=== PATIENT | female | born 1940 | race Caucasian/White ===

== ENCOUNTER → 2016-09-05 | Outpatient (CLI) | payer OTHER, MEDICARE ==
[~2016-09-05] MED LIST: ALPH100T PO; ALPH1TAB PO; AMOX1TAB43 PO; ANAS1TAB19 PO; ANR PO; ASPCH81X PO; BEE POLLEN PO; BEE580CA PO; BUPR-79 PO; BUPR150T47 PO; CALC-214 PO; CALC1TAB25 PO; CEFD300C2 PO; CHOL100010 PO; CHOL100027 PO; CIPR-255 PO; COEN50CA2 PO; COEN50CA9 PO; DIGE1CAP7 PO; DIGE1TAB PO; FRRS300 PO; FSMD/70 PO; GLUC1CAP35 PO; GLUCCAP PO; HYDR-5688 PO; LISI-461 PO; LORA-741 PO; LPR25 PO; MAGN1TAB16 PO; METO25TA56 PO; OMEG10007 PO; OMEG12006 PO; ONDA8TAB6 PO; POTA99TA PO; POTASSIUM PO; PROB1TAB16 PO; PROC1TAB5 PO; SELE1TAB PO; VITA10004 PO; [UNRECOGNIZED DRUG - OTHER] PO; [UNRECOGNIZED DRUG - OTHER] PO; [UNRECOGNIZED DRUG - OTHER] PO; [UNRECOGNIZED DRUG - OTHER] PO
--- NOTE | 2016-09-05 14:26 | DIAGNOSTIC IMAGING REPORT ---
PET/CT SKULL-THIGH CLINICAL HISTORY: Breast carcinoma COMPARISON STUDY: 05/30/2016 FINDINGS: The patient was injected with 13.3 mCi of F 18 labeled FDG. Following the standard induction phase, PET/CT scanning is performed from skull base to the upper thigh region. Within the neck, there is a persistent FDG avid left supraclavicular lymph node with SUV maximum of 4.2. Within the chest, there are persistent small FDG avid mediastinal and hilar lymph nodes. A escrow representative right hilar lymph node has an SUV maximum of 4.8. This previously had an SUV maximum of 4.5. Since the prior study, the patient has developed a small left pleural effusion. There is diffuse increased pleural uptake on the right, a finding consistent with prior pleurodesis. There are increasing small FDG avid left axillary lymph nodes. Since the prior study, the patient has developed small FDG avid hepatic masses demonstrating SUV maximum of 7 there are bilateral FDG avid small adrenal nodules. The largest lesion is located within the left lobe measuring 2 cm. There is persistent left-sided hydronephrosis.. There are small FDG avid lymph nodes in the region the tico hepatis. There is a small FDG avid Para-aortic lymph node. There is colonic diverticulosis. There is an FDG avid left adnexal lesion with SUV maximum of 10.5. This appears to fuse to the left ovary. There is persistent sigmoid wall thickening which remains FDG avid. There are multiple sclerotic skeletal lesions consistent with skeletal metastases. Several these are FDG avid. There is at the GE avid soft tissue nodule within the right lateral abdominal wall at the renal level. IMPRESSION: 1. PET/CT evidence of progressive metastatic disease. 2. Interval development of a small left pleural effusion 3. Persistent FDG avid adenopathy, soft tissue metastasis, and skeletal 4. Interval development of FDG avid hepatic masses viewed as highly suspicious for metastatic disease 5. Persistent sigmoid wall thickening which remains FDG avid 6. Increased intensity of an FDG avid lesion fusing to the left ovary with SUV maximum of 10.5 Electronically signed by: Ho Pimentel M.D. 09/05/2016 2:24 PM Dictated Date/Time: 09/05/2016 2:08 PM
== END | disposition home or self-care (01) ==
LOC: C.PET 11:02
PROVIDERS: ATTEND Internal Medicine Hematology
DX: C50.011 Malignant neoplasm of nipple and areola, right female breast (principal); C79.51 Secondary malignant neoplasm of bone

== ENCOUNTER 2016-10-28 20:38 | Inpatient (IN) | payer OTHER, MEDICARE ==
[~2016-10-28] VITALS: Ht 162.6 cm; Wt 55.6 kg
[~2016-10-28 20:38] MED LIST changes: -ALPH1TAB PO; -BEE580CA PO; -BUPR-79 PO; -CALC-214 PO; -CEFD300C2 PO; -CHOL100010 PO; -CIPR-255 PO; -COEN50CA9 PO; -DIGE1TAB PO; -GLUC1CAP35 PO; -METO25TA56 PO; -OMEG10007 PO; -ONDA8TAB6 PO; -POTA99TA PO; -PROB1TAB16 PO; -PROC1TAB5 PO; -[UNRECOGNIZED DRUG - OTHER] PO
[2016-10-28] MEDS ORDERED: LEVAQUIN 750MG / 150ML D5W IV STA (21:01)
[2016-10-28] MEDS ORDERED: VANCOMYCIN 1GM/270ML NSS IV STA (21:01)
[2016-10-28] MEDS ORDERED: SODIUM CHLORIDE 0.9% 1000ML 1,000 ML IV ONE (21:01)
[2016-10-28] MEDS ORDERED: PIPERACILLIN/TAZOBACTAM 4.5 GM/100ML D5W IV STA (21:01)
[2016-10-28] MEDS ORDERED: ONDANSETRON INJ 2 MG/ML 2 ML VIAL IV STA (21:02)
[2016-10-28] MEDS ORDERED: ACETAMINOPHEN 500 MG TAB PO STA (21:02)
--- NOTE | 2016-10-28 21:23 | EMERGENCY ROOM VISIT NOTE ---
History Report prepared by Catarina: Etelvina Booker Under the Supervision of: Dr. Devin Oden M.D. First contact with patient: 20:52 Chief Complaint: VOMITING Stated Complaint: VOMIT, NAUSEA History of Present Illness The patient is a 76 year old female who presents to the Emergency Room with complaints of intermittent vomiting starting a few days ago. The patient states that she has been experiencing nausea, a fever, and neck pain. She states she took Tylenol early this afternoon. The patient notes that she has breast cancer and is taking chemotherapy pills for it. She reports that she came to the ED because she thinks she is dehydrated. The patient denies abdominal pain. Source of History: patient Onset: few days ago Position: other (global) Quality: other (global) Timing: intermittent Associated Symptoms: + fevers, + nausea, + neck pain, No abdominal pain Review of Systems See HPI for pertinent positives & negatives. A total of 10 systems reviewed and were otherwise negative. Past Medical & Surgical Medical Problems: (1) Anemia due to multiple mechanisms (2) Anxiety (3) Breast cancer (4) HTN (hypertension) (5) Malignant pleural effusion (6) Secondary malignant neoplasm of bone (7) Stage IV carcinoma of breast, ER+ Surgical Problems: (1) H/O shoulder replacement (2) S/P breast lumpectomy Family History Aneurysm FH: cancer Hypertension Social History Smoking Status: Former Smoker Alcohol Use: occasionally Marital Status: in relationship Housing Status: lives with significant other Current/Historical Medications Scheduled Alendronate/Cholecalciferol (Fosamax+D 70MG/2800 Iu), 1 TABLET PO WK Alpha-Lipoic Acid (Thioctic Ac (Alpha-Lipoic Acid), 1 TAB PO HS Aspirin (Aspirin Chewable), 243 MG PO QAM Bupropion (Zyban), 150 MG PO BID Calcium W/ Magnesium (Calcium Magnesium 750), 1 TAB PO HS Cholecalciferol (Vitamin D 1000 Unit), 6,000 UNITS PO HS Ciprofloxacin Hcl (Cipro), 500 MG PO BID Coenzyme Q10 (Ubidecarenone) (Co Q-10), 50-100 MG PO HS Digestive Enzymes (Digestive Enzymes), 1 CAP PO HS Pmurpizunbl-Yqeerpadmge-Ylhtnx (Joint Support Formula), 2 CAP PO HS Metoprolol Tartrate (Lopressor), 25 MG PO BID [place]-3 Fatty Acids ([place] 3), 1,600 MG PO HS Selenium (Selenium), 100 MCG PO HS Vitamin E (Vitamin E), 1,000 UNITS PO HS [Anr], 4 TAB PO H [Potassium], 100 MG PO HS [bee pollen], 3 TBS PO HS [citramax], 1 TAB PO AC [new life], 3 CAP PO HS [probilis], 3,000 MG PO HS Scheduled PRN Hydrocodone/Acetaminophen 5MG/325MG ([place] 5MG/325MG), 1 TABLET PO Q8H PRN for N Lorazepam (Ativan), 0.5 MG PO BID PRN for RN Allergies Coded Allergies: Sulfa Antibiotics (Verified Allergy, Unknown, NAUSEA AND VOMITNG, 10/28/16) Physical Exam Vital Signs Date Time Temp Pulse Resp B/P Pulse Ox O2 Delivery O2 Flow Rate FiO2 10/29/16 01:43 94 18 114/59 96 Room Air 10/29/16 00:16 108 18 97/64 95 Room Air 10/28/16 22:41 36.9 128 18 104/62 94 10/28/16 21:31 134 22 135/83 93 Room Air 10/28/16 21:17 134 10/28/16 21:15 93 Room Air 10/28/16 20:51 38.3 151 24 113/71 93 Room Air Physical Exam GENERAL: Patient is well-nourished and cachetic in appearance. HEAD: Normocephalic atraumatic EYES: Ocular movements intact pupils equal and react to light OROPHARYNX mucous membranes are moist no exudates present no erythema or edema present NECK: Supple no nuchal rigidity CHEST: Good equal expansion LUNGS: Clear and equal to auscultation CARDIAC: Normal S1 and S2 ABDOMEN: Soft nontender no guarding BACK: No CVA tenderness EXTREMITIES: No pain upon palpation normal muscle strength in all groups no clubbing cyanosis or edema NEURO: Patient is following commands is answering questions appropriately. Alert and oriented x3 Cranial Nerves 2-12 grossly intact Medical Decision & Procedures ER Provider Diagnostic Interpretation: Radiology results as stated below per my review and radiologist interpretation: CHEST ONE VIEW PORTABLE HISTORY: Sepsis COMPARISON: Chest 06/22/2016. PET CT 09/05/2016. FINDINGS: Small right pleural effusion and right basilar airspace opacities, unchanged. The heart remains mildly enlarged. No pneumothorax. No new focal lung consolidations. No evidence for pulmonary edema. IMPRESSION: No change in the small right pleural effusion and right basilar airspace opacities. Electronically signed by: Santiago Mejia M.D. 10/28/2016 9:49 PM Dictated Date/Time: 10/28/2016 9:47 PM Laboratory Results 10/28/16 20:55 Red Blood Count 3.46, Mean Corpuscular Volume 85.3, Mean Corpuscular Hemoglobin 29.2, Mean Corpuscular Hemoglobin Concent 34.2, Mean Platelet Volume 9.7, Neutrophils (%) (Auto) 91.3, Lymphocytes (%) (Auto) 3.2, Monocytes (%) (Auto) 5.0, Eosinophils (%) (Auto) 0.0, Basophils (%) (Auto) 0.1, Neutrophils # (Auto) 14.40, Lymphocytes # (Auto) 0.51, Monocytes # (Auto) 0.79, Eosinophils # (Auto) 0.00, Basophils # (Auto) 0.02 10/28/16 20:55 Test 10/28/16 20:55 10/28/16 21:22 10/28/16 21:57 White Blood Count 15.78 K/uL (4.8-10.8) Red Blood Count 3.46 M/uL (4.2-5.4) Hemoglobin 10.1 g/dL (12.0-16.0) Hematocrit 29.5 % (37-47) Mean Corpuscular Volume 85.3 fL (80-100) Mean Corpuscular Hemoglobin 29.2 pg (25-34) Mean Corpuscular Hemoglobin Concent 34.2 g/dl (32-36) Platelet Count 269 K/uL (130-400) Mean Platelet Volume 9.7 fL (7.4-10.4) Neutrophils (%) (Auto) 91.3 % Lymphocytes (%) (Auto) 3.2 % Monocytes (%) (Auto) 5.0 % Eosinophils (%) (Auto) 0.0 % Basophils (%) (Auto) 0.1 % Neutrophils # (Auto) 14.40 K/uL (1.4-6.5) Lymphocytes # (Auto) 0.51 K/uL (1.2-3.4) Monocytes # (Auto) 0.79 K/uL (0.11-0.59) Eosinophils # (Auto) 0.00 K/uL (0-0.5) Basophils # (Auto) 0.02 K/uL (0-0.2) RDW Standard Deviation 47.8 fL (36.4-46.3) RDW Coefficient of Variation 16.3 % (11.5-14.5) Immature Granulocyte % (Auto) 0.4 % Immature Granulocyte # (Auto) 0.06 K/uL (0.00-0.02) Platelet Estimate NORMAL Prothrombin Time 14.7 SECONDS (9.0-12.0) Prothromb Time International Ratio 1.4 (0.9-1.1) Activated Partial Thromboplast Time 34.9 SECONDS (21.0-31.0) Partial Thromboplastin Ratio 1.3 Anion Gap 13.0 mmol/L (3-11) Est Creatinine Clear Calc Drug Dose 19.1 ml/min Estimated GFR () 24.6 Estimated GFR (Non- 21.2 BUN/Creatinine Ratio 24.6 (10-20) Calcium Level 8.4 mg/dl (8.5-10.1) Magnesium Level 2.2 mg/dl (1.8-2.4) Total Bilirubin 0.4 mg/dl (0.2-1) Aspartate Amino Transf (AST/SGOT) 27 U/L (15-37) Alanine Aminotransferase (ALT/SGPT) 17 U/L (12-78) Alkaline Phosphatase 93 U/L (45-117) Total Protein 7.6 gm/dl (6.4-8.2) Albumin 3.0 gm/dl (3.4-5.0) Globulin 4.6 gm/dl (2.5-4.0) Albumin/Globulin Ratio 0.7 (0.9-2) Influenza Type A (RT-PCR) Neg for Influ A (NEG) Influenza Type A Antigen Neg for Influ A (NEG) Influenza Type B Antigen Neg for Influ B (NEG) Influenza Type B (RT-PCR) Neg for Influ B (NEG) Bedside Lactic Acid Venous 2.27 mmol/L (0.90-1.70) Labs reviewed by ED physician. Medications Administered Medications (Trade) Dose Ordered Sig/Zeferino Route Start Time Stop Time Status Last Admin Dose Admin Sodium Chloride (Nss 1000ml) 1,000 ml @ 999 mls/hr Q1H1M ONCE IV 5/28/17 21:01 10/28/16 22:01 DC 10/28/16 21:15 999 MLS/HR Piperacillin Sod/ Tazobactam Sod (Zosyn Iv) 4.5 gm ONE STAT IV 10/28/16 21:01 10/28/16 21:03 DC 10/28/16 22:03 4.5 GM Vancomycin HCl (Vancomycin 1gm/ 270ml Nss) 1 gm ONE STAT IV 10/28/16 21:01 10/28/16 21:04 DC 10/29/16 00:37 1 GM Levofloxacin (Levaquin / D5W) 750 mg ONE STAT IV 10/28/16 21:01 10/28/16 21:04 DC 10/28/16 22:48 750 MG Acetaminophen (Tylenol Tab) 1,000 mg NOW STAT PO 10/28/16 21:02 10/28/16 21:04 DC 10/28/16 21:20 1,000 MG Ondansetron HCl 4 mg 4 mg NOW STAT IV 10/28/16 21:02 10/28/16 21:04 DC 10/28/16 21:13 4 MG Sodium Chloride 159 ml @ 999 mls/hr Q10M STAT IV 10/28/16 21:31 10/28/16 21:40 DC 10/28/16 22:44 999 MLS/HR Sodium Chloride (Nss 500ml) 500 ml @ 999 mls/hr Q31M STAT IV 10/28/16 21:31 10/28/16 22:01 DC 10/28/16 22:02 999 MLS/HR ECG Indication: vomiting Rate (beats per minute): 144 Rhythm: sinus tachycardia Findings: RBBB (incomplete), other (Short CT, premature supraventricular complexes, old septal infarct) ED Course 2051: Past medical records reviewed. The patient was evaluated in room B7. A complete history and physical examination was performed. 2100: Ordered Levofloxacin 750 mg IV, Vancomycin HCl 1 gm IV, Zosyn Iv 4.5 gm IV , NSS 1000 ml @ 999 mls/hr. 2101: Ordered Zofran Inj 4 mg IV, Tylenol Tab 1000 mg PO. 2130: Ordered NSS 500 ml @ 999 mls/hr IV, NSS 159 ml @ 999 mls/hr IV. 2149: I reevaluated the patient and she is resting comfortably. I discussed her test results and the future treatment plan with her. She verbalized agreement and understanding. 2153: I discussed the patient's case with Dr. Elliott, he has agreed to evaluate the patient for further management and care. Medical Decision Medication Reconciliation: I attest that I have personally reviewed the patient' s current medication list Differential diagnosis: Etiologies such as sepsis, UTI, pneumonia, metabolic, electrolyte abnormalities , cardiac sources, intracerebral event, toxicologic, neurologic, as well as others were entertained. This is a 76-year-old female who presents emergency department hypotensive. For this reason a sepsis alert was initiated. Lactic acid was obtained the patient was given normal saline bolus 30 mL's per kilogram. Blood cultures were obtained. The patient was started on broad-spectrum antibiotics. She does have an elevation in her white blood count in her creatinine and troponin are also elevated. I did discuss the case with the hospitalist service who agreed to admit the patient. Patient and family were in agreement with the treatment plan. Consults Time Called: 2149 Consulting Physician: Dr. Elliott Returned Call: 2153 I discussed the patient's case with Dr. Elliott, he has agreed to evaluate the patient for further management and care. Impression Primary Impression: Sepsis Critical Care I have personally spent greater than 30 minutes of critical care time in the direct management of this patient. This includes bedside care, interpretation of diagnostic studies, and testing, discussion with consultants, patient, and family members, and other required patient management activities. This 30 minutes is in excess of all separately billable procedures. Scribe Attestation The scribe's documentation has been prepared under my direction and personally reviewed by me in its entirety. I confirm that the note above accurately reflects all work, treatment, procedures, and medical decision making performed by me. Departure Information Dispostion Being Evaluated By Hospitalist Prescriptions Ciprofloxacin Hcl (CIPRO) 500 Mg Tab 500 MG PO BID for 7 Days, #14 TAB Prov: Nell Borrero, 10/29/16 Referrals Nathalie Davis M.D. (PCP) Patient Instructions My [facility] Problem Qualifiers Primary Impression: Sepsis Sepsis type: sepsis due to unspecified organism Qualified Codes: A41.9 - Sepsis, unspecified organism
[2016-10-28 21:26] LABS: INR 1.4 (0.9-1.1); PARTIAL THROMBOPLASTIN RATIO 1.3; PROTHROMBIN TIME (PATIENT) 14.7 SECONDS (9.0-12.0)
[2016-10-28 21:31] LABS: BUN/CREATININE RATIO 24.6 (10-20); CREATININE 2.2 mg/dl (0.60-1.20); POTASSIUM 3.2 mmol/L (3.5-5.1)
[2016-10-28] MEDS ORDERED: SODIUM CHLORIDE 0.9% IV STA (21:31)
[2016-10-28] MEDS ORDERED: SODIUM CHLORIDE 0.9% 500ML 500 ML IV STA (21:31)
[2016-10-28 21:35] LABS: HEMATOCRIT 29.5 % (37-47); MEAN CELL VOLUME 85.3 fL (80-100); MEAN CORPUSCULAR HEMOGLOBIN 29.2 pg (25-34); MEAN CORPUSCULAR HGB CONC 34.2 g/dl (32-36); MEAN PLATELET VOLUME 9.7 fL (7.4-10.4); PLATELET COUNT 269 K/uL (130-400); RED BLOOD COUNT 3.46 M/uL (4.2-5.4); WHITE BLOOD COUNT 15.78 K/uL (4.8-10.8)
[2016-10-28 21:36] LABS: BASO % 0.1 %; BASO ABS # 0.02 K/uL (0-0.2); COMPLETE YES; IG% 0.4 %; LYMPH % 3.2 %; LYMPH ABS # 0.51 K/uL (1.2-3.4); NEUT % 91.3 %; PLT ESTIMATE NORMAL
[2016-10-28 21:38] LABS: ALB/GLOB RATIO 0.7 (0.9-2); CKMB/CK RATIO 0.6 (0-3.0)
--- NOTE | 2016-10-28 21:50 | DIAGNOSTIC IMAGING REPORT ---
CHEST ONE VIEW PORTABLE HISTORY: Sepsis COMPARISON: Chest 06/22/2016. PET CT 09/05/2016. FINDINGS: Small right pleural effusion and right basilar airspace opacities, unchanged. The heart remains mildly enlarged. No pneumothorax. No new focal lung consolidations. No evidence for pulmonary edema. IMPRESSION: No change in the small right pleural effusion and right basilar airspace opacities. Electronically signed by: Santiago Mejia M.D. 10/28/2016 9:49 PM Dictated Date/Time: 10/28/2016 9:47 PM
[2016-10-28 21:58] LABS: CALCIUM 8.4 mg/dl (8.5-10.1)
[2016-10-28 23:32] LABS: INFLUENZA A PCR Neg for Influ A (NEG); INFLUENZA B PCR Neg for Influ B (NEG)
[2016-10-29] MEDS ORDERED: VANCOMYCIN 1GM/270ML NSS ONE (00:36)
[2016-10-29 02:37] VITALS: O2SAT 96
[2016-10-29] MEDS ORDERED: HYDROCODONE/ACETAMOPHEN 5/325MG TAB PO PRN (02:45)
[2016-10-29] MEDS ORDERED: ACETAMINOPHEN 325 MG TAB PO PRN (02:45)
[2016-10-29] MEDS ORDERED: ONDANSETRON INJ 2 MG/ML 2 ML VIAL IV PRN (02:45)
[2016-10-29] MEDS ORDERED: LORAZEPAM 0.5 MG TAB PO PRN (02:45)
[2016-10-29 03:01] LABS: URINE APPEARANCE TURBID (CLEAR); URINE BILIRUBIN NEG (NEG); URINE COLOR YELLOW; URINE EPITHELIAL CELL AUTO 20-30 /lpf (0-5); URINE NITRITE POS (NEG); URINE SPECIFIC GRAVITY 1.022 (1.000-1.030); UROBILINOGEN NEG (NEG); ZZUR CULT IF INDIC CLEAN CATCH YES
--- NOTE | 2016-10-29 03:03 | History and Physical ---
History & Physical Date & Time of Service: October 29, 2016 at 02:48 Chief Complaint: Vomit, Nausea Primary Care Physician: Nathalie Davis M.D. History of Present Illness Source: patient, hospital records 75 year old female with history of Metastatic Breast Cancer, currently on Xeloda , Hypertension, Atrial fibrillation presenting with fever and nausea/vomiting. Follows with Dr. Nathalie Davis for PCP and Dr. Oliver Davis for Oncology. History obtained from patient who was very irritable and sharp during my encounter. She would only give brief answers to my questions. "I don't have sepsis! I do not believe you." Patient reassured and I discussed her condition and plan of care extensively with her. Apparently, she was doing fine until about 3-4 days ago when after eating [place] food, she had multiple episodes of vomiting and since then has been feeling weak and with poor oral intake. Also had chills intermittently. Denies abdominal pain, cough, shortness of breath, headache, changes with urination or BM. She presented to the ER due to persistence of symptoms. Patient arrive febrile and tachycardic. WBC elevated CXR showed right pleural effusion, likely similar to previous studies Crea elevated at 2.2 She was given Vanco, Zosyn, Levaquin and IV fluids. On exam, patient sleeping but easily rousable. States she feels somewhat better but still feels cold. Denies any active symptoms on exam, Past Medical/Surgical History Medical Problems: (1) Anxiety Status: Chronic (2) Breast cancer Status: Chronic (3) HTN (hypertension) Status: Chronic (4) Malignant pleural effusion Status: Chronic Surgical Problems: (1) H/O shoulder replacement Status: Chronic (2) S/P breast lumpectomy Status: Chronic Family History Aneurysm FH: cancer Hypertension Social History Smoking Status: Former Smoker Alcohol Use: occasionally Drug Use: none Marital Status: single, in relationship Immunizations History of Influenza Vaccine: Yes Influenza Vaccine Date: Mar 06, 2016 History of Pneumococcal: Yes Pneumococcal Date: Mar 06, 2016 Allergies Coded Allergies: Sulfa Antibiotics (Verified Allergy, Unknown, NAUSEA AND VOMITNG, 10/28/16) Home Medications Scheduled Alendronate/Cholecalciferol (Fosamax+D 70MG/2800 Iu), 1 TABLET PO WK Alpha-Lipoic Acid (Thioctic Ac (Alpha-Lipoic Acid), 1 TAB PO HS Aspirin (Aspirin Chewable), 243 MG PO QAM Bupropion (Zyban), 150 MG PO BID Calcium W/ Magnesium (Calcium Magnesium 750), 1 TAB PO HS Cholecalciferol (Vitamin D 1000 Unit), 6,000 UNITS PO HS Coenzyme Q10 (Ubidecarenone) (Co Q-10), 50-100 MG PO HS Digestive Enzymes (Digestive Enzymes), 1 CAP PO HS Lptegyhuneq-Pnmstzplxhz-Zgxjxr (Joint Support Formula), 2 CAP PO HS Metoprolol Tartrate (Lopressor), 25 MG PO BID [place]-3 Fatty Acids ([place] 3), 1,600 MG PO HS Selenium (Selenium), 100 MCG PO HS Vitamin E (Vitamin E), 1,000 UNITS PO HS [Anr], 4 TAB PO H [Potassium], 100 MG PO HS [bee pollen], 3 TBS PO HS [citramax], 1 TAB PO AC [new life], 3 CAP PO HS [probilis], 3,000 MG PO HS Scheduled PRN Hydrocodone/Acetaminophen 5MG/325MG ([place] 5MG/325MG), 1 TABLET PO Q8H PRN for N Lorazepam (Ativan), 0.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 Constitutional- (+) as noted above Eyes- no acute visual changes ENT- no sinus drainage; no pharyngitis Pulmonary- no cough, no wheezing, no shortness of breath Cardiac- no chest pain, no palpitations, no orthopnea, no dependent edema GI- no diarrhea, no melena, no hematochezia - no dysuria, no hematuria Musculoskeletal- no arthralgias, no myalgias Derm- no rashes, no new skin lesions, no changing skin lesions Hematologic- no unusual bruising, no unusual bleeding Lymphatics- no adenopathy Endocrine- no polyuria or polydipsia; no heat or cold intolerance Neuro- no headaches, no focal neurologic symptoms Psych- no anxiety, no depression Physical Exam Vital Signs Date Time Temp Pulse Resp B/P Pulse Ox O2 Delivery O2 Flow Rate FiO2 10/29/16 01:43 94 18 114/59 96 Room Air 10/29/16 00:16 108 18 97/64 95 Room Air 10/28/16 22:41 36.9 128 18 104/62 94 10/28/16 21:31 134 22 135/83 93 Room Air 10/28/16 21:17 134 10/28/16 21:15 93 Room Air 10/28/16 20:51 38.3 151 24 113/71 93 Room Air FULL PHYSICAL EXAM NOT PERFORMED PATIENT DECLINED, RN AT BESIDE DURING PHYSICAL EXAM General Appearance: no apparent distress, + thin Head: normocephalic, atraumatic Eyes: normal inspection, EOMI, sclerae normal ENT: hearing grossly normal, + pertinent finding (FULL PHYSICAL EXAM NOT PERFORMED PATIENT DECLINED) Neck: supple, no JVD, + pertinent finding (FULL PHYSICAL EXAM NOT PERFORMED PATIENT DECLINED) Respiratory/Chest: lungs clear, normal breath sounds, no respiratory distress, no accessory muscle use Cardiovascular: regular rate, rhythm, no JVD, no murmur Abdomen/GI: + pertinent finding (FULL PHYSICAL EXAM NOT PERFORMED PATIENT DECLINED) Back: normal inspection Extremities/Musculoskelatal: + pertinent finding (FULL PHYSICAL EXAM NOT PERFORMED PATIENT DECLINED) Neurologic/Psych: no motor/sensory deficits, alert, oriented x 3, + pertinent finding (AFFECT: PATIENT VERY IRRITABLE AND UNCOOPERATIVE, BUT OCCASIONALLY WOULD GIVE COMPLIMENTS TO EXAMINER) Skin: normal color, warm/dry, no rash Diagnostics Laboratory Results Results Past 24 Hours Test 10/28/16 20:55 10/28/16 21:22 10/28/16 21:57 10/29/16 02:28 Range/Units White Blood Count 15.78 4.8-10.8 K/uL Red Blood Count 3.46 4.2-5.4 M/uL Hemoglobin 10.1 12.0-16.0 g/dL Hematocrit 29.5 37-47 % Mean Corpuscular Volume 85.3 80-100 fL Mean Corpuscular Hemoglobin 29.2 25-34 pg Mean Corpuscular Hemoglobin Concent 34.2 32-36 g/dl Platelet Count 269 130-400 K/uL Mean Platelet Volume 9.7 7.4-10.4 fL Neutrophils (%) (Auto) 91.3 % Lymphocytes (%) (Auto) 3.2 % Monocytes (%) (Auto) 5.0 % Eosinophils (%) (Auto) 0.0 % Basophils (%) (Auto) 0.1 % Neutrophils # (Auto) 14.40 1.4-6.5 K/uL Lymphocytes # (Auto) 0.51 1.2-3.4 K/uL Monocytes # (Auto) 0.79 0.11-0.59 K/uL Eosinophils # (Auto) 0.00 0-0.5 K/uL Basophils # (Auto) 0.02 0-0.2 K/uL RDW Standard Deviation 47.8 36.4-46.3 fL RDW Coefficient of Variation 16.3 11.5-14.5 % Immature Granulocyte % (Auto) 0.4 % Immature Granulocyte # (Auto) 0.06 0.00-0.02 K/uL Platelet Estimate NORMAL Prothrombin Time 14.7 9.0-12.0 SECONDS Prothromb Time International Ratio 1.4 0.9-1.1 Activated Partial Thromboplast Time 34.9 21.0-31.0 SECONDS Partial Thromboplastin Ratio 1.3 Sodium Level 140 136-145 mmol/L Potassium Level 3.2 3.5-5.1 mmol/L Chloride Level 106 98-107 mmol/L Carbon Dioxide Level 21 21-32 mmol/L Anion Gap 13.0 3-11 mmol/L Blood Urea Nitrogen 54 7-18 mg/dl Creatinine 2.20 0.60-1.20 mg/dl Est Creatinine Clear Calc Drug Dose 19.1 ml/min Estimated GFR () 24.6 Estimated GFR (Non- 21.2 BUN/Creatinine Ratio 24.6 10-20 Random Glucose 168 70-99 mg/dl Calcium Level 8.4 8.5-10.1 mg/dl Total Bilirubin 0.4 0.2-1 mg/dl Aspartate Amino Transf (AST/SGOT) 27 15-37 U/L Alanine Aminotransferase (ALT/SGPT) 17 12-78 U/L Alkaline Phosphatase 93 45-117 U/L Total Creatine Kinase 275 26-192 U/L Creatine Kinase MB 1.6 0.5-3.6 ng/ml Creatine Kinase MB Ratio 0.6 0-3.0 Troponin I 0.353 0-0.045 ng/ml Total Protein 7.6 6.4-8.2 gm/dl Albumin 3.0 3.4-5.0 gm/dl Globulin 4.6 2.5-4.0 gm/dl Albumin/Globulin Ratio 0.7 0.9-2 Influenza Type A (RT-PCR) Neg for Influ A NEG Influenza Type A Antigen Neg for Influ A NEG Influenza Type B Antigen Neg for Influ B NEG Influenza Type B (RT-PCR) Neg for Influ B NEG Bedside Lactic Acid Venous 2.27 0.90-1.70 mmol/L Test 10/29/16 02:34 10/29/16 02:43 Range/Units Microbiology Results 10/28/16 Blood Culture, Received Pending 10/28/16 Blood Culture, Received Pending 10/29/16 Urine Culture, Received Pending Diagnostic Radiology CHEST ONE VIEW PORTABLE HISTORY: Sepsis COMPARISON: Chest 06/22/2016. PET CT 09/05/2016. FINDINGS: Small right pleural effusion and right basilar airspace opacities, unchanged. The heart remains mildly enlarged. No pneumothorax. No new focal lung consolidations. No evidence for pulmonary edema. IMPRESSION: No change in the small right pleural effusion and right basilar airspace opacities. EKG hr 149, sinus tach, PVCs Impression Assessment and Plan 75 year old female with history of Metastatic Breast Cancer, currently on Xeloda , Hypertension, Atrial fibrillation presenting with fever and nausea/vomiting. SIRS CRITERIA POSSIBLE SEPSIS - no clear focus of infection on exam - on chemo, immunosuppressed - ff up cultures - empiric Vanco, Zosy, Levaquin IV fluids -repeat lactic acid ACUTE RENAL FAILURE baseline crea 0.8 likely pre renal from vomiting, poor intake IV fluids monitor crea HYPOKALEMIA from vomiting, poor intake PO K monitor check Mg ELEVATED LACTIC ACID monitor BREAST CANCER WITH BRAIN, LIVER, BONE METS on Xeloda every other week Xgeva follows with Dr. Davis HYPERTENSION HISTORY OF ATRIAL FIBRILLATION hold Metoprolol to prevent hypotension while having sepsis resume accordingly on Aspirin DVT prophylaxis patient declines leg exam, defer SCDs until swelling ruled out hold off on heparin/lovenox, confirm Brain mets on Pet scan CODE status patient prefers CPR and Shock regarding mech vent, patient declined discussion and says her sister will bring her living will Full code for now until living will verified Disposition pending VTE Prophylaxis VTE Risk Assessment Done? Y/N: Yes Risk Level: Moderate
[2016-10-29 03:05] LABS: MANUAL MICROSCOPIC REQUIRED? NO; REVIEW REQ? YES
[2016-10-29 03:14] LABS: MAGNESIUM 2.2 mg/dl (1.8-2.4)
[2016-10-29 04:03] LABS: CKMB/CK RATIO 0.6 (0-3.0)
[2016-10-29 04:34] VITALS: BMI 20.9
[2016-10-29 04:36] VITALS: BP 116/71; PULSE 92; TEMP 36.3; Ht 162.6 cm; Wt 55.6 kg
[2016-10-29] MEDS ORDERED: NSS + 20MEQ KCL 1000ML 1,000 ML IV SCH (05:00)
[2016-10-29] MEDS ORDERED: POTASSIUM CHLORIDE 20 MEQ TABCR PO ONE (05:00)
[2016-10-29] MEDS ORDERED: VANCOMYCIN CONSULT ACTIVE PRN (05:10)
[2016-10-29] MEDS ORDERED: LEVOFLOXACIN CONSULT ACTIVE PRN (05:15)
[2016-10-29] MEDS ORDERED: PIPERACILL/TAZOBAC CONSULT ACTIVE PRN (05:15)
[2016-10-29] MEDS ORDERED: PIPERACILL/TAZOBAC IV 3.375 GM in DEXTROSE 5% 100ML IV SCH (06:00)
[2016-10-29 07:17] VITALS: BP 111/71; PULSE 89; TEMP 36.5; O2SAT 94
[2016-10-29] MEDS ORDERED: ASPIRIN 81 MG CHEW PO SCH (09:00)
[2016-10-29] MEDS ORDERED: BuPROPion SR 150 MG TABCR PO SCH (09:00)
--- NOTE | 2016-10-29 11:24 | Progress Note ---
Progress Note Date of Service October 29, 2016. Progress Note I saw the patient in room 278-2: she states she is refusing to stay in the hospital; she wants to sign out against medical advice. I let her know that she has sepsis and a positive blood culture and she said she still would like to sign out against medical advice. She states she has cancer all over and there is no reason for her to stay here to be treated. She is okay with seeing her primary care physician as an outpatient. Sepsis possibly secondary to UTI UA = dirty blood culture x1 positive for gram negative bacilli second blood culture pending urine culture pending She is signing out against medical advice will d/c with Cipro x7 days outpatient PCP and oncology follow-up will need outpatient CBC and BMP to follow-up on WBC, kidney function and potassium level She is refusing all other treatment
[2016-10-29] MEDS ORDERED: CIPR-255 PO (11:25)
[2016-10-29 11:26] VITALS: BP 125/78; PULSE 91; TEMP 36.7; O2SAT 96
--- NOTE | 2016-10-29 11:36 | Discharge Instructions ---
Discharge Instructions Date of Service October 29, 2016. Admission Reason for Admission: Sepsis Discharge Discharge Diagnosis / Problem: Sepsis, possibly secondary to UTI Discharge Goals Goal(s): Decrease discomfort, Improve function Activity Recommendations Activity Limitations: resume your previous activity . Instructions / Follow-Up Instructions / Follow-Up You are signing out against medical advice - consequences include worsening infection, sepsis, septic shock, end organ failure and possibly Please drink plenty of fluids, you are dehydrated You will be prescribed Cipro for 7 days for a UTI Please follow-up with your PCP - you will get a phone call with a date/time - PCP should recheck CBC and BMP (labwork) and should follow-up on blood cultures/ urine culture Current Hospital Diet Patient's current hospital diet: AHA Diet (Heart Healthy), Clear Liquid Diet Discharge Diet Recommended Diet: Regular Diet Pending Studies Studies pending at discharge: no Medical Emergencies . Who to Call and When: Medical Emergencies: If at any time you feel your situation is an emergency, please call 911 immediately. . Non-Emergent Contact Non-Emergency issues call your: Primary Care Provider . . "Provider Documentation" section prepared by Nell Borrero. . VTE Core Measure Inpt VTE Proph given/why not?: SCD's
[2016-10-29 11:43] VITALS: BP 125/78; PULSE 91; TEMP 36.7; O2SAT 96
[2016-10-29] MEDS ORDERED: VANCOMYCIN INJ 800 MG in SODIUM CHLORIDE 0.9% 250ML 250 ML IV ONE (14:00)
[2016-10-29] MEDS ORDERED: OMEGA-3 (PURIFIED FISH OIL) 1 GM CAP PO SCH (21:00)
[2016-10-29] MEDS ORDERED: CALCIUM CITRATE 950 MG TAB PO SCH (21:00)
[2016-10-29] MEDS ORDERED: SELENIUM 100 MCG PO SCH (21:00)
[2016-10-29] MEDS ORDERED: [UNRECOGNIZED DRUG - OTHER] PO SCH (21:00)
[2016-10-29] MEDS ORDERED: TOCOPHERYL, DL-ALPHA 100 INTERUNIT CAP PO SCH (21:00)
[2016-10-30] MEDS ORDERED: PROC1TAB5 PO (12:31)
[2016-10-30] MEDS ORDERED: ONDA8TAB6 PO (12:31)
[2016-10-30] MEDS ORDERED: BUPR-79 PO (12:31)
[2016-10-30] MEDS ORDERED: CIPR-255 PO (12:31)
[2016-10-30] MEDS ORDERED: LORA-741 PO (12:31)
[2016-10-30] MEDS ORDERED: METO25TA56 PO (12:31)
[2016-10-30] MEDS ORDERED: POTA99TA PO (12:39)
[2016-10-30] MEDS ORDERED: PROB1TAB16 PO (12:39)
[2016-10-30] MEDS ORDERED: SELE1TAB PO (12:39)
[2016-10-30] MEDS ORDERED: DIGE1TAB PO (12:39)
[2016-10-30] MEDS ORDERED: CALC-214 PO (12:39)
[2016-10-30] MEDS ORDERED: [UNRECOGNIZED DRUG - OTHER] PO (12:39)
[2016-10-30] MEDS ORDERED: COEN50CA9 PO (12:39)
[2016-10-30] MEDS ORDERED: GLUC1CAP35 PO (12:39)
[2016-10-30] MEDS ORDERED: ALPH1TAB PO (12:39)
[2016-10-30] MEDS ORDERED: OMEG10007 PO (12:39)
[2016-10-30] MEDS ORDERED: CHOL100010 PO (12:39)
[2016-10-30] MEDS ORDERED: BEE580CA PO (12:39)
[2016-10-30] MEDS ORDERED: LEVOFLOXACIN 750MG / D5W IV SCH (22:00)
[2016-11-01] MEDS ORDERED: CEFD300C2 PO (11:23)
--- NOTE | 2016-11-12 21:19 | Discharge Summary ---
Discharge Summary Date of Service October 29 Discharge Summary Admission Date: October 29, 2016 at 02:27 Discharge Date: October 29, 2016 Principal Diagnosis: GRAM-NEGATIVE BACTEREMIA - SIGNED OUT AMA Admission Information HPI (per Admitting provider): 75 year old female with history of Metastatic Breast Cancer, currently on Xeloda , Hypertension, Atrial fibrillation presenting with fever and nausea/vomiting. Follows with Dr. Nathalie Davis for PCP and Dr. Oliver Davis for Oncology. History obtained from patient who was very irritable and sharp during my encounter. She would only give brief answers to my questions. "I don't have sepsis! I do not believe you." Patient reassured and I discussed her condition and plan of care extensively with her. Apparently, she was doing fine until about 3-4 days ago when after eating [place] food, she had multiple episodes of vomiting and since then has been feeling weak and with poor oral intake. Also had chills intermittently. Denies abdominal pain, cough, shortness of breath, headache, changes with urination or BM. She presented to the ER due to persistence of symptoms. Patient arrive febrile and tachycardic. WBC elevated CXR showed right pleural effusion, likely similar to previous studies Crea elevated at 2.2 She was given Vanco, Zosyn, Levaquin and IV fluids. On exam, patient sleeping but easily rousable. States she feels somewhat better but still feels cold. Denies any active symptoms on exam, Physical Exam (per Admitting): General Appearance: no apparent distress, + thin Head: normocephalic, atraumatic Eyes: normal inspection, EOMI, sclerae normal ENT: hearing grossly normal, + pertinent finding (FULL PHYSICAL EXAM NOT PERFORMED PATIENT DECLINED) Neck: supple, no JVD, + pertinent finding (FULL PHYSICAL EXAM NOT PERFORMED PATIENT DECLINED) Respiratory/Chest: lungs clear, normal breath sounds, no respiratory distress, no accessory muscle use Cardiovascular: regular rate, rhythm, no JVD, no murmur Abdomen/GI: + pertinent finding (FULL PHYSICAL EXAM NOT PERFORMED PATIENT DECLINED) Back: normal inspection Extremities/Musculoskelatal: + pertinent finding (FULL PHYSICAL EXAM NOT PERFORMED PATIENT DECLINED) Neurologic/Psych: no motor/sensory deficits, alert, oriented x 3, + pertinent finding (AFFECT: PATIENT VERY IRRITABLE AND UNCOOPERATIVE, BUT OCCASIONALLY WOULD GIVE COMPLIMENTS TO EXAMINER) Skin: normal color, warm/dry, no rash Hospital Course SIGNED OUT AMA SIGNED OUT AMA Discharge Instructions You are signing out against medical advice - consequences include worsening infection, sepsis, septic shock, end organ failure and possibly Please drink plenty of fluids, you are dehydrated You will be prescribed Cipro for 7 days for a UTI Please follow-up with your PCP - you will get a phone call with a date/time - PCP should recheck CBC and BMP (labwork) and should follow-up on blood cultures/ urine culture
== END 2016-10-29 12:30 | disposition left against medical advice (07) | DRG 872 ==
LOC: ENRESERVDT → ENRESERVTM → EDBD 20:38 → C.EDB 20:39 → C.MED 10-29 02:27
PROVIDERS: ADMIT Internal Medicine; ATTEND Family Medicine
DX: A41.9 Sepsis, unspecified organism (principal); N39.0 Urinary tract infection, site not specified; N17.9 Acute kidney failure, unspecified; C79.31 Secondary malignant neoplasm of brain; C78.7 Secondary malignant neoplasm of liver and intrahepatic bile duct; C79.51 Secondary malignant neoplasm of bone; J91.0 Malignant pleural effusion; B96.89 Other specified bacterial agents as the cause of diseases classified elsewhere; E87.6 Hypokalemia; R74.0 Nonspecific elevation of levels of transaminase and lactic acid dehydrogenase [LDH]; C50.919 Malignant neoplasm of unspecified site of unspecified female breast; R11.10 Vomiting, unspecified; R63.8 Other symptoms and signs concerning food and fluid intake; F41.9 Anxiety disorder, unspecified; Z53.21 Procedure and treatment not carried out due to patient leaving prior to being seen by health care provider; Z96.619 Presence of unspecified artificial shoulder joint; Z79.83 Long term (current) use of bisphosphonates; Z86.79 Personal history of other diseases of the circulatory system; Z79.82 Long term (current) use of aspirin; Z87.891 Personal history of nicotine dependence; Z79.891 Long term (current) use of opiate analgesic; Z79.899 Other long term (current) drug therapy; Z86.2 Personal history of diseases of the blood and blood-forming organs and certain disorders involving the immune mechanism

== ENCOUNTER 2016-10-30 11:30 | Inpatient (IN) | payer OTHER, MEDICARE ==
[~2016-10-30] VITALS: Ht 162.6 cm; Wt 58.6 kg
[~2016-10-30 11:30] MED LIST changes: -AMOX1TAB43 PO; -ANAS1TAB19 PO; +CIPR-255 PO; -FRRS300 PO; -LISI-461 PO; -MAGN1TAB16 PO
[2016-10-30] MEDS ORDERED: BUPR-79 PO (12:31)
[2016-10-30] MEDS ORDERED: LORA-741 PO (12:31)
[2016-10-30] MEDS ORDERED: CIPR-255 PO (12:31)
[2016-10-30] MEDS ORDERED: METO25TA56 PO (12:31)
[2016-10-30] MEDS ORDERED: PROC1TAB5 PO (12:31)
[2016-10-30] MEDS ORDERED: ONDA8TAB6 PO (12:31)
[2016-10-30] MEDS ORDERED: BEE580CA PO (12:39)
[2016-10-30] MEDS ORDERED: GLUC1CAP35 PO (12:39)
[2016-10-30] MEDS ORDERED: POTA99TA PO (12:39)
[2016-10-30] MEDS ORDERED: OMEG10007 PO (12:39)
[2016-10-30] MEDS ORDERED: DIGE1TAB PO (12:39)
[2016-10-30] MEDS ORDERED: ALPH1TAB PO (12:39)
[2016-10-30] MEDS ORDERED: PROB1TAB16 PO (12:39)
[2016-10-30] MEDS ORDERED: SELE1TAB PO (12:39)
[2016-10-30] MEDS ORDERED: COEN50CA9 PO (12:39)
[2016-10-30] MEDS ORDERED: [UNRECOGNIZED DRUG - OTHER] PO (12:39)
[2016-10-30] MEDS ORDERED: CALC-214 PO (12:39)
[2016-10-30] MEDS ORDERED: CHOL100010 PO (12:39)
[2016-10-30] MEDS ORDERED: PIPERACILLIN/TAZOBACTAM 4.5 GM/100ML D5W IV STA (12:42)
[2016-10-30] MEDS ORDERED: SODIUM CHLORIDE 0.9% 1000ML 1,000 ML IV STA (12:42)
[2016-10-30] MEDS ORDERED: LEVAQUIN 750MG / 150ML D5W IV STA (12:42)
[2016-10-30 13:56] LABS: BASO % 0.2 %; BASO ABS # 0.02 K/uL (0-0.2); EOS % 0.8 %; HEMATOCRIT 26.7 % (37-47); IG% 0.4 %; LYMPH % 5.8 %; LYMPH ABS # 0.49 K/uL (1.2-3.4); MEAN CORPUSCULAR HEMOGLOBIN 28.7 pg (25-34); MEAN PLATELET VOLUME 9.7 fL (7.4-10.4); MONO % 10.3 %; NEUT % 82.5 %; PLATELET COUNT 219 K/uL (130-400); RED BLOOD COUNT 3.07 M/uL (4.2-5.4); WHITE BLOOD COUNT 8.42 K/uL (4.8-10.8)
[2016-10-30] MEDS ORDERED: ONDANSETRON INJ 2 MG/ML 2 ML VIAL IV PRN (14:00)
[2016-10-30] MEDS ORDERED: ONDANSETRON 8 MG TAB PO PRN (14:00)
[2016-10-30] MEDS ORDERED: HEPARIN SOD 5000 UNIT/0.5 ML CARP SQ SCH (14:00)
[2016-10-30] MEDS ORDERED: POLYETHYLENE (MIRALAX) 17 GM PACK PO PRN (14:00)
[2016-10-30] MEDS ORDERED: LORAZEPAM 0.5 MG TAB PO PRN (14:00)
[2016-10-30] MEDS ORDERED: ZOLPIDEM TARTRATE 5 MG TAB PO PRN (14:00)
[2016-10-30] MEDS: SODIUM CHLORIDE 0.9% 1000ML 1,000 ML IV SCH ×2 (14:00→23:33)
[2016-10-30] MEDS ORDERED: MAGNESIUM HYDROXIDE SUSP 30 ML UDC PO PRN (14:00)
[2016-10-30] MEDS ORDERED: ALUMINUM/MAGNESIUM/SIMETH (MAALOX MAX) 30 ML UDC PO PRN (14:00)
[2016-10-30] MEDS ORDERED: PROCHLORPERAZINE MALEATE 10 MG TAB PO PRN (14:00)
[2016-10-30 14:02] LABS: INR 1.2 (0.9-1.1); PARTIAL THROMBOPLASTIN RATIO 1.2; PROTHROMBIN TIME (PATIENT) 12.7 SECONDS (9.0-12.0)
[2016-10-30] MEDS ORDERED: PIPERACILL/TAZOBAC CONSULT ACTIVE PRN (14:15)
[2016-10-30 14:16] VITALS: Ht 162.6 cm; Wt 58.6 kg
[2016-10-30 14:29] LABS: COMPLETE YES
[2016-10-30 14:42] LABS: BUN/CREATININE RATIO 21.6 (10-20); CKMB/CK RATIO 0.6 (0-3.0); CREATININE 1.4 mg/dl (0.60-1.20); MAGNESIUM 2.6 mg/dl (1.8-2.4); POTASSIUM 3.5 mmol/L (3.5-5.1); THYROID STIMULATING HORMONE 1.46 uIu/ml (0.300-4.500)
--- NOTE | 2016-10-30 14:45 | Progress Note ---
Progress Note Date of Service October 30, 2016.
--- NOTE | 2016-10-30 14:48 | History and Physical ---
History & Physical Date & Time of Service: October 30, 2016 at 13:56 Chief Complaint: Abnormal Labs Primary Care Physician: Nathalie Huber M.D. History of Present Illness Source: patient, clinic records, hospital records This is a 76 y/o female with PMH of metastatic breast CA on Xeloda, hypertension , atrial fibrillation, who presents to the ED with malaise and chills. Pt follows with Dr. Nathalie Huber for primary care and Dr. Oliver Huber for oncology. Patient had presented to the ER 2 nights ago on 10/28 with fever, tachycardia, WBC 15K, and was admitted roller pneumatic 10/29 for SIRS, possible sepsis, no clear source however UA was abnormal, treated with Vancomycin, Zosyn , Levaquin and IVF's. Patient also noted to have USHA and hypokalemia. Blood culture x 1 from 10/28 was positive for gram negative bacilli, however patient signed out AMA. Was given Cipro on discharge which she took, last dose this am. She reports leaving because she "felt fine" yesterday, however today developed malaise and chills. This morning she received a call from the hospital about her positive blood cultures x 2 growing gram negative bacilli. This morning she had diffuse abdominal discomfort with 1 episode of diarrhea and took 2 Imodium. No further BM. She admits to nausea. Pt had vomiting last week after eating [place] food. Pt reports having urinary symptoms a few days ago which resolved. Pt also admits to sinus congestion. She reports "always" feeling dizzy. Uses a cane intermittently. She was febrile to 38.3 on 10/28 in the ER but denies subsequent fever. Denies rhinorrhea, sore throat, ear ache, BEJARANO, cough, SOB, chest pain, calf pain, myalgias, edema, abnormal bleeding. She is on her off week for Xeloda and is due to resume it tomorrow. Past Medical/Surgical History Medical Problems: (1) Anxiety Status: Chronic (2) Atrial fibrillation Status: Chronic (3) Bone metastasis Status: Chronic (4) Brain mass Permanent Comment: in childhood per records Status: Chronic (5) Breast cancer Status: Chronic (6) History of DVT (deep vein thrombosis) Permanent Comment: refused Coumadin per records Status: Chronic (7) HTN (hypertension) Status: Chronic (8) Iron deficiency anemia Status: Chronic (9) Liver metastasis Status: Chronic (10) Malignant pleural effusion Status: Chronic Surgical Problems: (1) H/O shoulder replacement Status: Chronic (2) S/P breast lumpectomy Status: Chronic Family History Aneurysm FH: cancer Hypertension Social History Smoking Status: Former Smoker (quit 50 years ago ) Alcohol Use: none Drug Use: none Marital Status: single, in relationship Housing status: lives with family (sister lives with her) Immunizations History of Influenza Vaccine: Yes Influenza Vaccine Date: Mar 06, 2016 History of Pneumococcal: Yes Pneumococcal Date: Mar 06, 2016 Allergies Coded Allergies: Sulfa Antibiotics (Verified Allergy, Unknown, NAUSEA AND VOMITNG, 10/28/16) Home Medications Scheduled Alpha-Lipoic Acid (Thioctic Ac (Alpha Lipoic Acid), 1 TAB PO DAILY Bee Pollen (Bee Pollen), 3 CAP PO HS Bupropion (Wellbutrin Sr), 150 MG PO BID Calcium W/ Magnesium (Calcium & Magnesium), 1 TAB PO DAILY Cholecalciferol (Vitamin D), 6,000 UNITS PO DAILY Ciprofloxacin Hcl (Cipro), 500 MG PO BID Coenzyme Q10 (Ubidecarenone) (Coq-10), 50-100 MG PO HS Digestive Enzymes (Digestive Enzymes), 1 TAB PO DAILY Fish Oil ([place]-3), 1 CAP PO HS Smsdfzjwria-Zwoiuqdktaz-Fyt C- (Glucosamine Chondroitin), 2 CAP PO HS Metoprolol Tartrate (Lopressor) (Lopressor), 25 MG PO BID Potassium (Potassium), 1 TAB PO HS Probiotic Product (Probiotic), 1 TAB PO HS Selenium (Selenium), 100 MCG PO HS [Citramax], 1 TAB PO AC Scheduled PRN Lorazepam (Ativan), 1-2 TABS PO DAILY PRN for Anxiety Ondansetron Hcl (Zofran), 8 MG PO TID PRN for Nausea Prochlorperazine Maleate (Compazine), 10 MG PO Q6H PRN for Nausea Review of Systems Ten systems reviewed and negative except as noted in HPI. Physical Exam Vital Signs Date Time Temp Pulse Resp B/P Pulse Ox O2 Delivery O2 Flow Rate FiO2 10/30/16 11:39 36.8 104 18 115/80 97 Room Air General Appearance: + thin, + pertinent finding (elderly female, alert, irritable but cooperates with exam) Head: normocephalic, atraumatic Eyes: normal inspection, PERRL, EOMI, sclerae normal ENT: normal ENT inspection, hearing grossly normal, pharynx normal, + pertinent finding (+ sinus tenderness bilateral frontal and maxillary sinuses. no nasal discharge. ) Neck: supple, no adenopathy, trachea midline Respiratory/Chest: lungs clear, normal breath sounds, no respiratory distress, no accessory muscle use Cardiovascular: no murmur, + tachycardia (regular rhythm, rate 90s) Abdomen/GI: normal bowel sounds, soft, + pertinent finding (mild suprapubic tenderness) Back: normal inspection Extremities/Musculoskelatal: no calf tenderness, no pedal edema Neurologic/Psych: alert, normal mood/affect, oriented x 3, + pertinent finding (speech clear, no dysarthria, no focal deficit on gross examination) Skin: normal color, warm/dry Diagnostics Laboratory Results Results Past 24 Hours Test 10/30/16 12:42 10/30/16 13:35 Range/Units Creatine Kinase MB Ratio 0-3.0 White Blood Count 8.42 4.8-10.8 K/uL Red Blood Count 3.07 4.2-5.4 M/uL Hemoglobin 8.8 12.0-16.0 g/dL Hematocrit 26.7 37-47 % Mean Corpuscular Volume 87.0 80-100 fL Mean Corpuscular Hemoglobin 28.7 25-34 pg Mean Corpuscular Hemoglobin Concent 33.0 32-36 g/dl Platelet Count 219 130-400 K/uL Mean Platelet Volume 9.7 7.4-10.4 fL Neutrophils (%) (Auto) 82.5 % Lymphocytes (%) (Auto) 5.8 % Monocytes (%) (Auto) 10.3 % Eosinophils (%) (Auto) 0.8 % Basophils (%) (Auto) 0.2 % Neutrophils # (Auto) 6.94 1.4-6.5 K/uL Lymphocytes # (Auto) 0.49 1.2-3.4 K/uL Monocytes # (Auto) 0.87 0.11-0.59 K/uL Eosinophils # (Auto) 0.07 0-0.5 K/uL Basophils # (Auto) 0.02 0-0.2 K/uL RDW Standard Deviation 50.5 36.4-46.3 fL RDW Coefficient of Variation 17.1 11.5-14.5 % Immature Granulocyte % (Auto) 0.4 % Immature Granulocyte # (Auto) 0.03 0.00-0.02 K/uL Microbiology Results 10/30/16 Blood Culture, Received Pending 10/30/16 Blood Culture, Received Pending Impression Assessment and Plan GRAM NEGATIVE BACTEREMIA POSSIBLE SEPSIS Blood cultures 10/28 positive x 2 for gram negative bacilli Presented 10/28 with fever, tachycardia, leukocytosis (15K), admitted for SIRS possible sepsis, unknown source however UA was abnormal, Vancomycin, Zosyn, Levaquin, IVF's Signed out AMA on 10/29, discharged on PO Cipro Now presents with chills, malaise, nausea, diarrhea, sinus congestion, states prior urinary symptoms resolved Afebrile, no leukocytosis, + tachycardia, POC and serum lactic acid WNL Urine culture from 10/29 has pinpoint growth- will follow Check repeat blood cultures, urine culture Check stool for C. diff Empiric Zosyn IV fluids Consult ID HISTORY OF ATRIAL FIBRILLATION Currently in rapid junctional rhythm, rate 100s Continue metoprolol Not on anticoagulation Monitor in telemetry ELEVATED TROPONIN Trop is 0.1, improved from 0.59 on 10/29 Denies chest pain EKG shows junctional tachycardia Monitor on telemetry RECENT USHA Improving Baseline Creat 0.8 -> increased to 2.2 on 10/28 -> 1.4 today Likely prerenal from vomiting and poor PO intake IVF's Monitor PRP Avoid nephrotoxins ANEMIA History of iron deficiency anemia Hg is 8.8 from 10.1; recent baseline in 10s Possibly dilutional from IVFs, denies bleeding Monitor CBC BREAST CANCER METASTATIC On Xeloda, currently on off week, due to resume tomorrow- will hold for now On Xgeva every 4 weeks Recent PET scan 09/05/16- 1. PET/CT evidence of progressive metastatic disease. 2. Interval development of a small left pleural effusion 3. Persistent FDG avid adenopathy, soft tissue metastasis, and skeletal 4. Interval development of FDG avid hepatic masses viewed as highly suspicious for metastatic disease 5. Persistent sigmoid wall thickening which remains FDG avid 6. Increased intensity of an FDG avid lesion fusing to the left ovary with SUV maximum of 10.[address] 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 Nathalie Huber for [facility] ATTENDING NOTE : records reviewed , pt interviewed and examined , care co-ordniated with Herminia Faye PA-C please see her documentation for detail pt history Briefly this is a 76 yo F with metastatic breast Ca invasive ductal CA of Rt breast -mets to liver , ovaries, colon, bones , hx malignant pleural effusion . Afib -not on anticoagulation due to bleeding risk , anemia was at [facility] yesterday with fever , malaise , nausea , vomiting found to have gram negative bacilli in 2/2 blood cultures pt left against medial advice on 10/29/16 with oral ciprofloxacin returned to ED today with complain of ongoing chills , weakness, fatigue , nausea and diarrhea limited information obtained as pt is not very co -operative P/E: limited exam , as not being co -operative GEN : no sign of distress HEENT; sclera nonicteric LUNGS /Heart /abdomen : pt declined exam EXT : + 2 bilateral ext , complains of neuropathic pain Neuro; AAO x3, declined detail exam A/P : GRAM NEGATIVE BACTEREMIA; high risk for sepsis /life threatening infection -immunocompromise status - metastatic malignancy /on palliative chemo ordered for repeat Blood culture cont IV Zosyn ID eval requested HX OF AFIB ; EKG shows junctional tachycardia due to above ordered for IV fluid monitor in tele pt is on Lopressor -which is continued not a candidate for anticoagulation ANEMIA OF CHRONIC DISEASE ; Hb 8.8 monitor USHA ON CKD STAGE 3 due to nausea /vomiting /diarrhea IV fluids monitor PRP METASTATIC STAGE 4 BREAST CA -Hold palliative oral chemo due to infection /bacteremia -cont out pt follow up with Dr Oliver huber DVT PROPHYLAXIS: high risk due to metastatic CA Sub q heparin ordered FULL CODE -discussed with patient Please refer to Noemi Faye PA-C documentation for further discussion of other issues Denisse Thorpe MD Level of Care Telemetry VTE Prophylaxis VTE Risk Assessment Done? Y/N: Yes Risk Level: High Given or contraindicated: Unfractionated heparin SQ Additional Copies To Oliver Huber M.D. Patel, Manisha N., M.D.
[2016-10-30] MEDS ORDERED: [UNRECOGNIZED DRUG - OTHER] PO SCH (16:00)
[2016-10-30 16:08] VITALS: BP 123/76; PULSE 109; TEMP 38.4; O2SAT 97
[2016-10-30 16:09] LABS: URINE APPEARANCE CLEAR (CLEAR); URINE BILIRUBIN NEG (NEG); URINE COLOR YELLOW; URINE EPITHELIAL CELL AUTO >30 /lpf (0-5); URINE NITRITE NEG (NEG); UROBILINOGEN NEG (NEG)
[2016-10-30 16:10] LABS: MANUAL MICROSCOPIC REQUIRED? NO; REVIEW REQ? YES
[2016-10-30] MEDS: ACETAMINOPHEN 325 MG TAB PO PRN (16:50)
[2016-10-30] MEDS ORDERED: PIPERACILL/TAZOBAC IV 3.375 GM in DEXTROSE 5% 100ML 100 ML IV SCH (18:00)
[2016-10-30] MEDS: PIPERACILL/TAZOBAC IV 3.375 GM in DEXTROSE 5% 100ML IV SCH (19:55)
[2016-10-30 20:02] VITALS: BP 116/73; PULSE 91; TEMP 36.8; O2SAT 97
--- NOTE | 2016-10-30 20:27 | EMERGENCY ROOM VISIT NOTE ---
History Report prepared by Catarina: Teresa Collins Under the Supervision of: Dr. Duane Doe M.D. First contact with patient: 12:40 Chief Complaint: OTHER COMPLAINT Stated Complaint: ABNORMAL LABS History of Present Illness The patient is a 76 year old female who presents to the Emergency Room with complaints of a persistent illness that began several days ago. The patient states that she has a history of metastatic beast cancer that has metastasized throughout her body. She states that three days ago she developed nausea and vomiting. The patient states that states that yesterday she was evaluated in the emergency department for a urinary tract infection. Per nursing notes the patient signed out against medical advice. The patient denies any pain, but states that she is feeling increasingly chilled. Pt denies LOC, headache, fevers, diaphoresis, visual changes, neck pain, chest pain, breathing difficulties, abdominal pain, back pain, melena, hematochezia, numbness, weakness, lymphadenopathy, rash, or other complaints. Source of History: patient Onset: several days ago Position: other (global) Quality: other (illness) Timing: other (persistent) Associated Symptoms: + chills, + nausea, + urinary symptoms, + vomiting Review of Systems See HPI for pertinent positives and negatives. A total of ten systems were reviewed and were otherwise negative. Past Medical & Surgical Medical Problems: (1) Anemia due to multiple mechanisms (2) Anxiety (3) Atrial fibrillation (4) Bone metastasis (5) Brain mass (6) Breast cancer (7) Gram-negative bacteremia (8) Gram-negative bacteremia (9) History of DVT (deep vein thrombosis) (10) HTN (hypertension) (11) Iron deficiency anemia (12) Liver metastasis (13) Malignant pleural effusion (14) Secondary malignant neoplasm of bone (15) Stage IV carcinoma of breast, ER+ (16) Tachycardia Surgical Problems: (1) H/O shoulder replacement (2) S/P breast lumpectomy Family History Aneurysm FH: cancer Hypertension Social History Smoking Status: Former Smoker Alcohol Use: occasionally Drug Use: none Marital Status: single, in relationship Housing Status: lives with significant other Current/Historical Medications Scheduled Alpha-Lipoic Acid (Thioctic Ac (Alpha Lipoic Acid), 1 TAB PO DAILY Bee Pollen (Bee Pollen), 3 CAP PO HS Bupropion (Wellbutrin Sr), 150 MG PO BID Calcium W/ Magnesium (Calcium & Magnesium), 1 TAB PO DAILY Cholecalciferol (Vitamin D), 6,000 UNITS PO DAILY Ciprofloxacin Hcl (Cipro), 500 MG PO BID Coenzyme Q10 (Ubidecarenone) (Coq-10), 50-100 MG PO HS Digestive Enzymes (Digestive Enzymes), 1 TAB PO DAILY Fish Oil ([place]-3), 1 CAP PO HS Kjmvcdzzusp-Gszonllrjex-Mcl C- (Glucosamine Chondroitin), 2 CAP PO HS Metoprolol Tartrate (Lopressor) (Lopressor), 25 MG PO BID Potassium (Potassium), 1 TAB PO HS Probiotic Product (Probiotic), 1 TAB PO HS Selenium (Selenium), 100 MCG PO HS [Citramax], 1 TAB PO AC Scheduled PRN Lorazepam (Ativan), 1-2 TABS PO DAILY PRN for Anxiety Ondansetron Hcl (Zofran), 8 MG PO TID PRN for Nausea Prochlorperazine Maleate (Compazine), 10 MG PO Q6H PRN for Nausea Allergies Coded Allergies: Sulfa Antibiotics (Verified Allergy, Unknown, NAUSEA AND VOMITNG, 10/28/16) Physical Exam Vital Signs Date Time Temp Pulse Resp B/P Pulse Ox O2 Delivery O2 Flow Rate FiO2 10/30/16 14:23 102 10/30/16 14:20 103 18 138/90 96 Room Air 10/30/16 14:16 Room Air 10/30/16 11:39 36.8 104 18 115/80 97 Room Air Physical Exam GENERAL: Awake, alert, well-appearing, in no distress HENT: Normocephalic, atraumatic. Oropharynx unremarkable. EYES: Normal conjunctiva. Sclera non-icteric. NECK: Supple. No nuchal rigidity. FROM. No JVD. RESPIRATORY: Clear to auscultation. CARDIAC: Borderline tachycardic, normal rhythm. Extremities warm and well perfused. Pulses equal. ABDOMEN: Soft, non-distended. No tenderness to palpation. No rebound or guarding. No masses. RECTAL: Deferred. MUSCULOSKELETAL: Chest examination reveals no tenderness. The back is symmetrical on inspection without obvious abnormality. There is no CVA tenderness to palpation. No joint edema. LOWER EXTREMITIES: Calves are equal size bilaterally and non-tender. No edema. No discoloration. NEURO: Normal sensorium. No sensory or motor deficits noted. SKIN: No rash or jaundice noted. Medical Decision & Procedures Laboratory Results 10/30/16 13:35 Red Blood Count 3.07, Mean Corpuscular Volume 87.0, Mean Corpuscular Hemoglobin 28.7, Mean Corpuscular Hemoglobin Concent 33.0, Mean Platelet Volume 9.7, Neutrophils (%) (Auto) 82.5, Lymphocytes (%) (Auto) 5.8, Monocytes (%) (Auto) 10.3, Eosinophils (%) (Auto) 0.8, Basophils (%) (Auto) 0.2, Neutrophils # (Auto ) 6.94, Lymphocytes # (Auto) 0.49, Monocytes # (Auto) 0.87, Eosinophils # (Auto ) 0.07, Basophils # (Auto) 0.02 10/30/16 13:35 Test 10/30/16 13:35 10/30/16 13:46 White Blood Count 8.42 K/uL (4.8-10.8) Red Blood Count 3.07 M/uL (4.2-5.4) Hemoglobin 8.8 g/dL (12.0-16.0) Hematocrit 26.7 % (37-47) Mean Corpuscular Volume 87.0 fL (80-100) Mean Corpuscular Hemoglobin 28.7 pg (25-34) Mean Corpuscular Hemoglobin Concent 33.0 g/dl (32-36) Platelet Count 219 K/uL (130-400) Mean Platelet Volume 9.7 fL (7.4-10.4) Neutrophils (%) (Auto) 82.5 % Lymphocytes (%) (Auto) 5.8 % Monocytes (%) (Auto) 10.3 % Eosinophils (%) (Auto) 0.8 % Basophils (%) (Auto) 0.2 % Neutrophils # (Auto) 6.94 K/uL (1.4-6.5) Lymphocytes # (Auto) 0.49 K/uL (1.2-3.4) Monocytes # (Auto) 0.87 K/uL (0.11-0.59) Eosinophils # (Auto) 0.07 K/uL (0-0.5) Basophils # (Auto) 0.02 K/uL (0-0.2) RDW Standard Deviation 50.5 fL (36.4-46.3) RDW Coefficient of Variation 17.1 % (11.5-14.5) Immature Granulocyte % (Auto) 0.4 % Immature Granulocyte # (Auto) 0.03 K/uL (0.00-0.02) Red Blood Cell Morphology Unremarkable Prothrombin Time 12.7 SECONDS (9.0-12.0) Prothromb Time International Ratio 1.2 (0.9-1.1) Activated Partial Thromboplast Time 30.6 SECONDS (21.0-31.0) Partial Thromboplastin Ratio 1.2 Anion Gap 9.0 mmol/L (3-11) Est Creatinine Clear Calc Drug Dose 30.0 ml/min Estimated GFR () 42.5 Estimated GFR (Non- 36.7 BUN/Creatinine Ratio 21.6 (10-20) Lactic Acid Level 1.2 mmol/L (0.4-2.0) Calcium Level 8.0 mg/dl (8.5-10.1) Magnesium Level 2.6 mg/dl (1.8-2.4) Total Bilirubin 0.5 mg/dl (0.2-1) Direct Bilirubin 0.2 mg/dl (0-0.2) Aspartate Amino Transf (AST/SGOT) 25 U/L (15-37) Alanine Aminotransferase (ALT/SGPT) 18 U/L (12-78) Alkaline Phosphatase 71 U/L (45-117) Total Creatine Kinase 159 U/L (26-192) Creatine Kinase MB 1.0 ng/ml (0.5-3.6) Creatine Kinase MB Ratio 0.6 (0-3.0) Troponin I 0.100 ng/ml (0-0.045) Total Protein 6.9 gm/dl (6.4-8.2) Albumin 2.6 gm/dl (3.4-5.0) Lipase 288 U/L (73-393) Thyroid Stimulating Hormone (TSH) 1.460 uIu/ml (0.300-4.500) Bedside Lactic Acid Venous 1.14 mmol/L (0.90-1.70) Laboratory results reviewed by me Medications Administered Medications (Trade) Dose Ordered Sig/Zeferino Route Start Time Stop Time Status Last Admin Dose Admin Sodium Chloride (Nss 1000ml) 1,000 ml @ 125 mls/hr Q8H STAT IV 10/30/16 12:42 10/30/16 20:41 10/30/16 14:37 125 MLS/HR Piperacillin Sod/ Tazobactam Sod (Zosyn Iv) 4.5 gm NOW STAT IV 10/30/16 12:42 10/30/16 12:44 DC 10/30/16 14:37 4.5 GM Levofloxacin (Levaquin / D5W) 750 mg NOW STAT IV 10/30/16 12:42 10/30/16 12:44 DC 10/30/16 15:15 750 MG Acetaminophen 650 mg 650 mg Q4H PRN PO 10/30/16 14:00 11/29/16 13:59 10/30/16 16:50 650 MG Sodium Chloride (Nss 1000ml) 1,000 ml @ 100 mls/hr Q10H IV 10/30/16 14:00 11/29/16 13:59 10/30/16 14:00 100 MLS/HR ECG Indication: nausea, vomiting Rate (beats per minute): 105 Rhythm: sinus tachycardia Findings: RBBB, no acute ischemic change ED Course 1242: Ordered Levofloxacin 750 mg IV, Zosyn IV 4.5 gm IV, Sodium Chloride 1000 ml @ 125 mls/hr IV. 1254: The patient was evaluated in room C2B. A complete history and physical exam was performed. I discussed the culture results with the patient and I discussed the treatment plan. She verbalized complete understanding and agreement. She is going to be evaluated for further treatment. 1300: I discussed the patients case with Maikol Lee PA-C. She is going to evaluate the patient for further treatment. Medical Decision Medication Reconciliation: I attest that I have personally reviewed the patient' s current medication list Blood pressure screening: Patient was found to have normal blood pressure on screening and does not require immediate follow-up. Triage Nursing notes reviewed. The patient's presentation and history were concerning for bacteremia and illness. Etiologies such as sepsis, bacteremia, urinary tract infection, viral syndrome , pneumonia, meningitis, as well as others were entertained. The patient was evaluated. She was chilled. She is willing to stay in the hospital today. Blood work was obtained. The patient was given Levaquin and Zosyn. Cultures from yesterday showing gram-negative bacteremia. She had findings consistent with UTI. Her white count had dropped. She is mildly anemic. Her troponin is a little bit elevated but better than yesterday. Lactate is improved. She will need further management in the hospital. The patient was educated. Consultation was made with internal medicine. The patient was evaluated in the Emergency Room for further treatment. The chart was completed utilizing [employer] Speech voice recognition software. Grammatical errors, random word insertions, pronoun errors, and incomplete sentences are an occasional consequence of this system due to software limitations, ambient noise, and hardware issues. Any formal questions or concerns about the content, text, or information contained within the body of this dictation should be directly addressed to the physician for clarification. Consults Time Called: 1258 Consulting Physician: Maikol Lee PA-C Returned Call: 1300 I discussed the patients case with Maikol Lee PA-C. She is going to evaluate the patient for further treatment. Impression Primary Impression: Gram negative sepsis Scribe Attestation The scribe's documentation has been prepared under my direction and personally reviewed by me in its entirety. I confirm that the note above accurately reflects all work, treatment, procedures, and medical decision making performed by me. Departure Information Dispostion Being Evaluated By Hospitalist Nathalie Styles M.D. (PCP)
[2016-10-30] MEDS ORDERED: GLUCOSAMINE CHONDROITIN VIT C PO SCH (21:00)
[2016-10-30] MEDS ORDERED: METOPROLOL TARTRATE 25 MG TAB PO SCH (21:00)
[2016-10-30] MEDS ORDERED: NON-FORMULARY MEDICATION (Probiotic Product (Probiotic) 1 TAB) PO SCH (21:00)
[2016-10-30] MEDS: OMEGA-3 (PURIFIED FISH OIL) 1 GM CAP PO SCH (21:00)
[2016-10-30] MEDS ORDERED: SELENIUM 100 MCG PO SCH (21:00)
[2016-10-30] MEDS ORDERED: BEE POLLEN PO SCH (21:00)
[2016-10-30] MEDS: BuPROPion SR 150 MG TABCR PO SCH (21:00)
[2016-10-30] MEDS: HEPARIN SOD 5000 UNIT/0.5 ML CARP SQ SCH (21:22)
[2016-10-30] MEDS ORDERED: METOPROLOL TARTRATE 1 MG/ML VIAL IV PRN (21:30)
[2016-10-30] MEDS ORDERED: DILTIAZEM BOLUS / DRIP IV STA (22:02)
--- NOTE | 2016-10-30 22:05 | Progress Note ---
Progress Note Date of Service October 30, 2016. Progress Note ATTENDING NOTE : pt developed rapid afib HR in 140-160 on floor no improvement after oral Lopressor and 1X 5 mg IV Lopressor started on IV Cardizem gtt with holding parameters Hold Beta eduardo monitor in Tele Cardiology eval requested
[2016-10-30] MEDS ORDERED: DILTIAZEM HCL INJ 10 MG in SYRINGE 0 ML IV SCH (22:30)
[2016-10-30] MEDS ORDERED: DILTIAZEM HCL INJ 125 MG in DEXTROSE 5% 100ML IV PRN (22:30)
[2016-10-30 23:09] VITALS: BP 119/62; PULSE 135; TEMP 36.8
[2016-10-31] VITALS (11 sets, daily range): BP systolic 93–132; BP diastolic 53–74; PULSE 71–124; TEMP 36.6–39.5; O2SAT 94–100
[2016-10-31] MEDS ORDERED: POTASSIUM CHLORIDE 10 MEQ TABCR PO STA (00:18)
[2016-10-31] MEDS ORDERED: DIGOXIN INJ 500 MCG/2 ML AMP ONE (00:19)
[2016-10-31] MEDS ORDERED: DIGOXIN IV 250 MCG in SYRINGE 9 ML IV STA (00:21)
[2016-10-31] MEDS ORDERED: ACETAMINOPHEN IV 1,000 MG in EMPTY BAG 0 ML IV STA (00:52)
[2016-10-31] MEDS ORDERED: LACTATED RINGER'S 1000ML 1,000 ML IV ONE (01:00)
[2016-10-31] MEDS ORDERED: ACETAMINOPHEN IV 1000MG/100ML IV STA (01:07)
[2016-10-31] MEDS: ACETAMINOPHEN 325 MG TAB PO PRN (01:22)
[2016-10-31] MEDS ORDERED: POTASSIUM CHLORIDE INJ 40 MEQ in SODIUM CHLORIDE 0.9% 1000ML 1,000 ML IV ONE (01:45)
[2016-10-31] MEDS: PIPERACILL/TAZOBAC IV 3.375 GM in DEXTROSE 5% 100ML IV SCH ×2 (04:25→11:46)
[2016-10-31] MEDS: HEPARIN SOD 5000 UNIT/0.5 ML CARP SQ SCH ×3 (05:23→21:06)
[2016-10-31 07:58] LABS: HEMATOCRIT 25.3 % (37-47); MEAN CELL VOLUME 85.8 fL (80-100); MEAN CORPUSCULAR HEMOGLOBIN 27.8 pg (25-34); MEAN CORPUSCULAR HGB CONC 32.4 g/dl (32-36); MEAN PLATELET VOLUME 9.3 fL (7.4-10.4); PLATELET COUNT 180 K/uL (130-400); RED BLOOD COUNT 2.95 M/uL (4.2-5.4); WHITE BLOOD COUNT 8.12 K/uL (4.8-10.8)
[2016-10-31 08:33] LABS: BUN/CREATININE RATIO 16.8 (10-20); CREATININE 1.6 mg/dl (0.60-1.20); MAGNESIUM 2.4 mg/dl (1.8-2.4); POTASSIUM 3.8 mmol/L (3.5-5.1)
[2016-10-31] MEDS ORDERED: ALPHA LIPOIC ACID PO SCH (09:00)
[2016-10-31] MEDS ORDERED: CALCIUM PO SCH (09:00)
[2016-10-31] MEDS: BuPROPion SR 150 MG TABCR PO SCH ×2 (09:00→21:06)
[2016-10-31] MEDS: CHOLECALCIFEROL 1000 INTER.UNIT TAB PO SCH (09:00)
[2016-10-31] MEDS: METOPROLOL TARTRATE 25 MG TAB PO SCH ×2 (09:00→21:06)
[2016-10-31] MEDS ORDERED: MAGNESIUM PO SCH (09:00)
[2016-10-31] MEDS ORDERED: DIGESTIVE ENZYMES PO SCH (09:00)
--- NOTE | 2016-10-31 10:21 | Medical Consult ---
Consultation Date of Consultation: October 31, 2016. Attending Physician: Denisse Thorpe M.D. Reason for Consultation: Gram negative bacteremia History of Present Illness Patient is a 71-year-old female with metastatic cancer who presents the emergency department with complaints of weakness, malaise, and chills. The patient was recently admitted for concerns of fever, tachycardia, and leukocytosis found to have sepsis with gram-negative bacilli bacteremia. The patient did not wish to stay in the hospital at that time and signed out AMA on p.o. Cipro 500 mg b.i.d. x7 days. She states that when she got home, she started to feel progressively worse. She began to have increasing weakness and chills. The patient states that her initial symptoms started approximately 2-3 days after eating [place] food at which time she started to have nausea, vomiting, and dizziness. She states that she has had no further nausea or vomiting following her last admission. She has not had any continued abdominal pain. She denies shortness of breath, chest pain, cough, myalgias, or urinary symptoms currently. The patient states that during her last admission, she self -diagnosed herself with urinary tract infection. It was noted her previous blood cultures are growing pansensitive E coli. Her urine culture was growing 3 types of organisms all in high counts, probable skin kisha. She had repeat blood and urine cultures completed on current admission. Both of which are pending. She has not had any further imaging studies. The patient is refusing imaging studies. She is currently on IV Zosyn. Past Medical/Surgical History Medical Problems: (1) Atrial fibrillation with rapid ventricular response Status: Acute (2) Gram negative sepsis Status: Acute (3) Sepsis Status: Acute Medical Problems: (1) Anemia due to multiple mechanisms (2) Anxiety (3) Atrial fibrillation (4) Bone metastasis (5) Brain mass (6) Breast cancer (7) Gram-negative bacteremia (8) Gram-negative bacteremia (9) History of DVT (deep vein thrombosis) (10) HTN (hypertension) (11) Iron deficiency anemia (12) Liver metastasis (13) Malignant pleural effusion (14) Secondary malignant neoplasm of bone (15) Stage IV carcinoma of breast, ER+ (16) Tachycardia Surgical Problems: (1) H/O shoulder replacement (2) S/P breast lumpectomy Family History Aneurysm FH: cancer Hypertension Noncontributory Social History Smoking Status: Former Smoker Alcohol Use: none Drug Use: none Marital Status: single, in relationship Housing Status: lives with significant other Allergies Coded Allergies: Sulfa Antibiotics (Verified Allergy, Unknown, NAUSEA AND VOMITNG, 10/28/16) Home Medications Reported Home Medications Medications Dose Route/Sig Max Daily Dose Days Date Category Dose Instructions Probiotic (Probiotic Product) 1 Tab Tab 1 Tab PO HS 10/30/16 Reported Potassium Unknown Strength Tab 1 Tab PO HS 10/30/16 Reported [Citramax] 1 Tab PO AC 10/30/16 Reported Bee Pollen Unknown Strength Cap 3 Cap PO HS 10/30/16 Reported Selenium 100 Mcg Tab 100 Mcg PO HS 10/30/16 Reported [place]-3 (Fish Oil) 1 Ea Cap 1 Cap PO HS 10/30/16 Reported Glucosamine Chondroitin (Htoyxrvrzkw-Havatbsbmlj-Nwd C-) 1 Cap Cap 2 Cap PO HS 10/30/16 Reported Digestive Enzymes 1 Tab Tab 1 Tab PO DAILY 10/30/16 Reported Coq-10 (Coenzyme Q10 (Ubidecarenone)) 50 Mg Cap 50-100 Mg PO HS 10/30/16 Reported Vitamin D (Cholecalciferol) 1,000 Unit Tab 6,000 Units PO DAILY 10/30/16 Reported Calcium & Magnesium (Calcium W/ Magnesium) 1 Tab Tab 1 Tab PO DAILY 10/30/16 Reported Alpha Lipoic Acid (Alpha-Lipoic Acid (Thioctic Ac) Unknown Strength Tab 1 Tab PO DAILY 10/30/16 Reported Lopressor (Metoprolol Tartrate) 25 Mg Tab 25 Mg PO BID 10/30/16 Reported Cipro (Ciprofloxacin Hcl) 500 Mg Tab 500 Mg PO BID 10/30/16 Reported PICKED UP 10/29/16 X 7 DAYS Wellbutrin Sr (Bupropion HCl) 150 Mg Ertab 150 Mg PO BID 10/30/16 Reported *BRAND NAME* Compazine (Prochlorperazine Maleate) 10 Mg Tab 10 Mg PO Q6H PRN 10/30/16 Reported Ativan (Lorazepam) 0.5 Mg Tab 1-2 Tabs PO DAILY PRN 10/30/16 Reported Zofran (Ondansetron HCl) 8 Mg Tab 8 Mg PO TID PRN 10/30/16 Reported Current Inpatient Medications Current Inpatient Medications Medications (Trade) Dose Ordered Sig/Zeferino Route Start Time Stop Time Status Last Admin Dose Admin Acetaminophen (Tylenol Tab) 650 mg Q4H PRN PO 10/30/16 14:00 11/29/16 13:59 10/31/16 01:22 650 MG Al Hydrox/Mg Hydrox/Simethicone (Maalox Max Susp) 15 ml Q4H PRN PO 10/30/16 14:00 11/29/16 13:59 Magnesium Hydroxide (Milk Of Magnesia Susp) 30 ml Q6H PRN PO 10/30/16 14:00 11/29/16 13:59 Polyethylene (Miralax Powder Packet) 17 gm DAILY PRN PO 10/30/16 14:00 11/29/16 13:59 Zolpidem Tartrate (Ambien Tab) 5 mg HSZ PRN PO 10/30/16 14:00 11/29/16 13:59 Ondansetron HCl (Zofran Inj) 4 mg Q6H PRN IV 10/30/16 14:00 11/29/16 13:59 Bupropion HCl (Wellbutrin-Sr Tab) 150 mg BID PO 10/30/16 21:00 11/29/16 20:59 10/31/16 09:00 150 MG Cholecalciferol (Vitamin D Tab) 6,000 inter.unit DAILY PO 10/31/16 09:00 11/30/16 08:59 10/31/16 09:00 6,000 INTER.UNIT Fish Oil ([place]-3 (Purified Fish Oil) Cap) 1 gm HS PO 10/30/16 21:00 11/29/16 20:59 Lorazepam (Ativan Tab) 0.5 mg Q8 PRN PO 10/30/16 14:00 11/29/16 13:59 Metoprolol Tartrate (Lopressor Tab) 25 mg BID PO 10/30/16 21:00 11/29/16 20:59 Future Hold 10/30/16 21:13 25 MG Ondansetron HCl (Zofran Tab) 8 mg TID PRN PO 10/30/16 14:00 11/29/16 13:59 Prochlorperazine Maleate (Compazine Tab) 10 mg Q6H PRN PO 10/30/16 14:00 11/29/16 13:59 Piperacillin Sod/ Tazobactam Sod (Consult) 1 ea UD PRN N/A 10/30/16 14:15 11/29/16 14:14 Heparin Sodium (Porcine) 5000 unit 5,000 unit Q8 SQ 10/30/16 22:00 11/29/16 21:59 Piperacillin Sod/ Tazobactam Sod 3.375 gm/Dextrose 115 ml @ 28.75 mls/ hr Q8H IV 10/30/16 20:00 11/13/16 19:59 10/31/16 04:25 28.75 MLS/HR Potassium Chloride/Sodium Chloride (KCl Inj/Nss 1000ml) 1,020 ml @ 75 mls/hr [id number] ONCE IV 10/31/16 01:45 10/31/16 15:20 10/31/16 02:05 75 MLS/HR Metoprolol Tartrate (Lopressor Tab) 25 mg BID PO 10/31/16 09:00 11/30/16 08:59 Review of Systems Constitutional: + weakness, + fatigue, No fever, No chills Eyes: No worsening of vision ENT: No hearing loss Respiratory: No cough, No shortness of breath Cardiovascular: No chest pain, No palpitations Abdomen: + vomiting (prior to previous admission- none since), No pain Musculoskeletal: No joint pain, No swelling Genitourinary - Female: + dysuria (prior to previous admission - none since), No urinary frequency, No urinary urgency Integumentary: No rash, No itch, No new/changing skin lesions Physical Exam Date Time Temp Pulse Resp B/P Pulse Ox O2 Delivery O2 Flow Rate FiO2 10/31/16 09:07 36.6 71 16 99/63 98 Room Air 10/31/16 08:00 Room Air 10/31/16 04:03 36.8 109 20 96/62 95 Room Air 10/31/16 04:00 Room Air 10/31/16 01:32 124 101/64 10/31/16 01:13 37.6 10/31/16 00:37 98/63 10/31/16 00:28 172 10/31/16 00:20 39.5 93/59 94 Room Air 10/30/16 23:59 Room Air 10/30/16 23:09 36.8 135 22 119/62 10/30/16 21:39 163 113/68 10/30/16 20:02 36.8 91 18 116/73 97 Room Air 10/30/16 19:41 Room Air 10/30/16 16:08 38.4 109 20 123/76 97 10/30/16 16:00 Room Air 10/30/16 15:30 89 18 94 10/30/16 14:23 102 10/30/16 14:20 103 18 138/90 96 Room Air 10/30/16 14:16 Room Air 10/30/16 11:39 36.8 104 18 115/80 97 Room Air General Appearance: WD/WN, no apparent distress Head: normocephalic, atraumatic Eyes: normal inspection, sclerae normal ENT: hearing grossly normal Neck: supple, trachea midline Respiratory/Chest: chest non-tender, lungs clear, normal breath sounds, no respiratory distress, no accessory muscle use Cardiovascular: regular rate, rhythm, no murmur Abdomen/GI: normal bowel sounds, soft, + tenderness (lower mid-abdomen- patient states from "full bladder") Extremities/Musculoskelatal: normal inspection, no pedal edema Neurologic/Psych: alert, normal mood/affect Skin: normal color, warm/dry, no rash Laboratory Results Item Value Date Time MRSA DNA Surveillance Screen - Final Complete 10/30/16 1600 Nasal Specimen Negative for MRSA by DNA Probe Urine Culture Received 10/30/16 1600 Urine , Clean Catch Pending Blood Culture Received 10/30/16 1335 Blood Pending Blood Culture Received 10/30/16 1325 Blood Pending Last 24 Hours Test 10/30/16 13:35 10/30/16 13:46 10/30/16 16:00 10/31/16 07:35 White Blood Count 8.42 K/uL 8.12 K/uL Red Blood Count 3.07 M/uL 2.95 M/uL Hemoglobin 8.8 g/dL 8.2 g/dL Hematocrit 26.7 % 25.3 % Mean Corpuscular Volume 87.0 fL 85.8 fL Mean Corpuscular Hemoglobin 28.7 pg 27.8 pg Mean Corpuscular Hemoglobin Concent 33.0 g/dl 32.4 g/dl Platelet Count 219 K/uL 180 K/uL Mean Platelet Volume 9.7 fL 9.3 fL Neutrophils (%) (Auto) 82.5 % Lymphocytes (%) (Auto) 5.8 % Monocytes (%) (Auto) 10.3 % Eosinophils (%) (Auto) 0.8 % Basophils (%) (Auto) 0.2 % Neutrophils # (Auto) 6.94 K/uL Lymphocytes # (Auto) 0.49 K/uL Monocytes # (Auto) 0.87 K/uL Eosinophils # (Auto) 0.07 K/uL Basophils # (Auto) 0.02 K/uL RDW Standard Deviation 50.5 fL 50.0 fL RDW Coefficient of Variation 17.1 % 17.0 % Immature Granulocyte % (Auto) 0.4 % Immature Granulocyte # (Auto) 0.03 K/uL Red Blood Cell Morphology Unremarkable Prothrombin Time 12.7 SECONDS Prothromb Time International Ratio 1.2 Activated Partial Thromboplast Time 30.6 SECONDS Partial Thromboplastin Ratio 1.2 Sodium Level 141 mmol/L 144 mmol/L Potassium Level 3.5 mmol/L 3.8 mmol/L Chloride Level 107 mmol/L 112 mmol/L Carbon Dioxide Level 25 mmol/L 25 mmol/L Anion Gap 9.0 mmol/L 7.0 mmol/L Blood Urea Nitrogen 30 mg/dl 27 mg/dl Creatinine 1.40 mg/dl 1.60 mg/dl Est Creatinine Clear Calc Drug Dose 30.0 ml/min 26.3 ml/min Estimated GFR () 42.5 36.2 Estimated GFR (Non- 36.7 31.2 BUN/Creatinine Ratio 21.6 16.8 Random Glucose 95 mg/dl 117 mg/dl Lactic Acid Level 1.2 mmol/L Calcium Level 8.0 mg/dl 7.0 mg/dl Magnesium Level 2.6 mg/dl 2.4 mg/dl Total Bilirubin 0.5 mg/dl Direct Bilirubin 0.2 mg/dl Aspartate Amino Transf (AST/SGOT) 25 U/L Alanine Aminotransferase (ALT/SGPT) 18 U/L Alkaline Phosphatase 71 U/L Total Creatine Kinase 159 U/L Creatine Kinase MB 1.0 ng/ml Creatine Kinase MB Ratio 0.6 Troponin I 0.100 ng/ml Total Protein 6.9 gm/dl Albumin 2.6 gm/dl Lipase 288 U/L Thyroid Stimulating Hormone (TSH) 1.460 uIu/ml Bedside Lactic Acid Venous 1.14 mmol/L Urine Color YELLOW Urine Appearance CLEAR Urine pH 5.0 Urine Specific [place] 1.020 Urine Protein 1+ Urine Glucose (UA) NEG Urine Ketones NEG Urine Occult Blood TRACE Urine Nitrite NEG Urine Bilirubin NEG Urine Urobilinogen NEG Urine Leukocyte Esterase SMALL Urine WBC (Auto) 10-30 /hpf Urine RBC (Auto) 0-4 /hpf Urine Hyaline Casts (Auto) 1-5 /lpf Urine Epithelial Cells (Auto) >30 /lpf Urine Bacteria (Auto) NEG Urine Renal Epithelial Cells 0-5 /lpf Urine Yeast (Auto) Assessment & Plan Patient with E. Coli bacteremia and possible UTI. The patient's repeat urine and blood cultures are pending. Previously urine culture showed pin-point growth and is being reincubated. The patient is currently on IV Zosyn. Feel that this can be narrowed to IV Ceftriaxone. Will continue to follow blood cultures. Recommended abdominal imaging due to E. Coli bacteremia following episode of vomiting/questionable UTI versus pyelonephritis. Patient is refusing imaging. Feel that likely, pending the patient's repeat culture, she likely will be able to transition to PO abx therapy to complete 14 days of treatment. We will follow. PROVIDER ADDENDUM: Patient examined and reviewed with Ms. Soliman. Agree with above assessment.
--- NOTE | 2016-10-31 11:50 | Cardiology Consultation ---
Cardiology Consultation Date of Consultation: October 31, 2016 Requesting Physician: Maurilio Attending Branch Billing Payroll Clerk: [email or web address] (Clifton Agee PA-C) History of Present Illness Ms. Yousif is a 76 year old female who is being seen at the request of Dr. Thorpe. Reason for consultation is atrial fibrillation with a rapid ventricular response. Ms. Yousif presented to the [facility] ER on 10/29/2016 with nausea and vomiting. She was noted to be febrile, tachycardic, and with an elevated WBC count. Sepsis Alert was called. She was prescribed IVF's, Levofloxacin 750 mg IV, Vancomycin HCl 1 gm IV, Zosyn Iv 4.5 gm IV, Zofran and Tylenol and admitted though refused to stay hospitalized and ultimately left against medical advice on 10/29/2016. She returned the next day, 10/30/2016 with worsening issues and has agreed to admission for further evaluation and treatment of what is felt to be urosepsis. It should be noted that the patient has been without metoprolol tartrate for about seven days, lapsing into asymptomatic atrial fibrillation with a rapid ventricular response - spontaneously converting back to sinus rhythm with rare PVC's around 04:30 AM on 10/31/2016. She denies chest pain, tachypalpitations, new or worsening shortness of breath. She notes self resolving palpitations only when first settling into bed at night. No near syncope or syncope. No orthopnea, PND, or lower extremity peripheral edema. ROS positive for generalized malaise, chills, diffuse abdominal discomfort, nausea, diarrhea, vomiting x1, chronic sinus congestion. She is noted to take multiple unknown supplements. (Clifton Agee PA-C) History Past Medical/Surgical History Breast cancer with diffuse metastasis, brain, bone, liver, malignant pleural effusion. S/P right lumpectomy. Radiation in 2014. Oral chemotherapy. Paroxysmal atrial fibrillation Contraindications to anticoagulation Anxiety Brain mass History of DVT in 1963, attributed to smoking and control pills. Hypertension Iron deficiency anemia Shoulder surgery Arthritis Vaginal pessary Family History: Mother with a brain aneurysm at the age of 58. Father at the age of 83, two years ago, ? CAD. She has two sisters and two brothers without known cardiac history. Social History: Reformed smoker, quit ~50 years ago. No significant alcohol. No illegal drug use. Lives with her sister in [place]. Worked at [employer] in the remote past. 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 (Clifton Agee PA-C) Review Of Systems General: +Fever. + Chills. + Malaise. No abrupt weight change. HEENT: Glasses. Cataracts. No amaurosis fugax. Cardiovascular: See above. ? Rheumatic fever as a child. Pulmonary: See above. Denies hemoptysis. Gastrointestinal: See above. Skin: No rash. Musculoskeletal: Neck discomfort. Leg discomfort, attributed to prior varicose vein surgery, left lower extremity. Hematologic: See above. DVT in 1962. Neurological: Denies history of TIA, CVA, or seizures Complete review of systems is as stated above, negative, or noncontributory. (Clifton Agee PA-C) Allergies Coded Allergies: Sulfa Antibiotics (Verified Allergy, Unknown, NAUSEA AND VOMITNG, 10/28/16) Medications Reported Home Medications Medications Dose Route/Sig Max Daily Dose Days Date Category Dose Instructions Probiotic (Probiotic Product) 1 Tab Tab 1 Tab PO HS 10/30/16 Reported Potassium Unknown Strength Tab 1 Tab PO HS 10/30/16 Reported [Citramax] 1 Tab PO AC 10/30/16 Reported Bee Pollen Unknown Strength Cap 3 Cap PO HS 10/30/16 Reported Selenium 100 Mcg Tab 100 Mcg PO HS 10/30/16 Reported [place]-3 (Fish Oil) 1 Ea Cap 1 Cap PO HS 10/30/16 Reported Glucosamine Chondroitin (Olmqcfszvdf-Vgyzyqjjbjf-Szj C-) 1 Cap Cap 2 Cap PO HS 10/30/16 Reported Digestive Enzymes 1 Tab Tab 1 Tab PO DAILY 10/30/16 Reported Coq-10 (Coenzyme Q10 (Ubidecarenone)) 50 Mg Cap 50-100 Mg PO HS 10/30/16 Reported Vitamin D (Cholecalciferol) 1,000 Unit Tab 6,000 Units PO DAILY 10/30/16 Reported Calcium & Magnesium (Calcium W/ Magnesium) 1 Tab Tab 1 Tab PO DAILY 10/30/16 Reported Alpha Lipoic Acid (Alpha-Lipoic Acid (Thioctic Ac) Unknown Strength Tab 1 Tab PO DAILY 10/30/16 Reported Lopressor (Metoprolol Tartrate) 25 Mg Tab 25 Mg PO BID 10/30/16 Reported Cipro (Ciprofloxacin Hcl) 500 Mg Tab 500 Mg PO BID 10/30/16 Reported PICKED UP 10/29/16 X 7 DAYS Wellbutrin Sr (Bupropion HCl) 150 Mg Ertab 150 Mg PO BID 10/30/16 Reported *BRAND NAME* Compazine (Prochlorperazine Maleate) 10 Mg Tab 10 Mg PO Q6H PRN 10/30/16 Reported Ativan (Lorazepam) 0.5 Mg Tab 1-2 Tabs PO DAILY PRN 10/30/16 Reported Zofran (Ondansetron HCl) 8 Mg Tab 8 Mg PO TID PRN 10/30/16 Reported (Clifton Agee PA-C) Physical Exam Vital Signs (Last 8hrs): Last 8 Hrs Date Time Temp Pulse Resp B/P Pulse Ox O2 Delivery O2 Flow Rate FiO2 10/31/16 09:07 36.6 71 16 99/63 98 Room Air 10/31/16 08:00 Room Air 10/31/16 04:03 36.8 109 20 96/62 95 Room Air 10/31/16 04:00 Room Air General Appearance: Alert and Oriented x3. NAD. Head: Normocephalic Atraumatic. Eyes: PER, EOMI, Conjunctiva and sclera clear Neck: Supple. No carotid bruits noted. No JVD. No HJD. Respiratory: Absent breath sounds at the right base. Otherwise, clear to auscultation bilaterally. Cardiovascular: RRR. No murmurs. No rubs. PMI is non displaced. Abdomen: +BS. No abdominal bruits. Soft. Nontender. Extremities: No edema, no clubbing or cyanosis. Distal pulses 2/4 bilaterally. Neuro: No focal deficits. Psychiatric: Normal affect. (Clifton Agee PA-C) Data Last 24 Hours Test 10/30/16 13:35 10/30/16 13:46 10/30/16 16:00 10/31/16 07:35 White Blood Count 8.42 K/uL 8.12 K/uL Red Blood Count 3.07 M/uL 2.95 M/uL Hemoglobin 8.8 g/dL 8.2 g/dL Hematocrit 26.7 % 25.3 % Mean Corpuscular Volume 87.0 fL 85.8 fL Mean Corpuscular Hemoglobin 28.7 pg 27.8 pg Mean Corpuscular Hemoglobin Concent 33.0 g/dl 32.4 g/dl Platelet Count 219 K/uL 180 K/uL Mean Platelet Volume 9.7 fL 9.3 fL Neutrophils (%) (Auto) 82.5 % Lymphocytes (%) (Auto) 5.8 % Monocytes (%) (Auto) 10.3 % Eosinophils (%) (Auto) 0.8 % Basophils (%) (Auto) 0.2 % Neutrophils # (Auto) 6.94 K/uL Lymphocytes # (Auto) 0.49 K/uL Monocytes # (Auto) 0.87 K/uL Eosinophils # (Auto) 0.07 K/uL Basophils # (Auto) 0.02 K/uL RDW Standard Deviation 50.5 fL 50.0 fL RDW Coefficient of Variation 17.1 % 17.0 % Immature Granulocyte % (Auto) 0.4 % Immature Granulocyte # (Auto) 0.03 K/uL Red Blood Cell Morphology Unremarkable Prothrombin Time 12.7 SECONDS Prothromb Time International Ratio 1.2 Activated Partial Thromboplast Time 30.6 SECONDS Partial Thromboplastin Ratio 1.2 Sodium Level 141 mmol/L 144 mmol/L Potassium Level 3.5 mmol/L 3.8 mmol/L Chloride Level 107 mmol/L 112 mmol/L Carbon Dioxide Level 25 mmol/L 25 mmol/L Anion Gap 9.0 mmol/L 7.0 mmol/L Blood Urea Nitrogen 30 mg/dl 27 mg/dl Creatinine 1.40 mg/dl 1.60 mg/dl Est Creatinine Clear Calc Drug Dose 30.0 ml/min 26.3 ml/min Estimated GFR () 42.5 36.2 Estimated GFR (Non- 36.7 31.2 BUN/Creatinine Ratio 21.6 16.8 Random Glucose 95 mg/dl 117 mg/dl Lactic Acid Level 1.2 mmol/L Calcium Level 8.0 mg/dl 7.0 mg/dl Magnesium Level 2.6 mg/dl 2.4 mg/dl Total Bilirubin 0.5 mg/dl Direct Bilirubin 0.2 mg/dl Aspartate Amino Transf (AST/SGOT) 25 U/L Alanine Aminotransferase (ALT/SGPT) 18 U/L Alkaline Phosphatase 71 U/L Total Creatine Kinase 159 U/L Creatine Kinase MB 1.0 ng/ml Creatine Kinase MB Ratio 0.6 Troponin I 0.100 ng/ml Total Protein 6.9 gm/dl Albumin 2.6 gm/dl Lipase 288 U/L Thyroid Stimulating Hormone (TSH) 1.460 uIu/ml Bedside Lactic Acid Venous 1.14 mmol/L Urine Color YELLOW Urine Appearance CLEAR Urine pH 5.0 Urine Specific [place] 1.020 Urine Protein 1+ Urine Glucose (UA) NEG Urine Ketones NEG Urine Occult Blood TRACE Urine Nitrite NEG Urine Bilirubin NEG Urine Urobilinogen NEG Urine Leukocyte Esterase SMALL Urine WBC (Auto) 10-30 /hpf Urine RBC (Auto) 0-4 /hpf Urine Hyaline Casts (Auto) 1-5 /lpf Urine Epithelial Cells (Auto) >30 /lpf Urine Bacteria (Auto) NEG Urine Renal Epithelial Cells 0-5 /lpf Urine Yeast (Auto) May 06, 2016 TTE Interpretation Summary ([facility], Dr. Roland): There is mild concentric left ventricular hypertrophy. Ejection Fraction = 55-60%. The right ventricle is mildly dilated. The right ventricular systolic function is mildly reduced. Mild pulmonary hypertension. Aortic valve sclerosis moderate, without significant aortic valvular stenosis. There is mild mitral regurgitation. There is moderate tricuspid regurgitation. There is no pericardial effusion. EKG dated and timed 30-OCT-2016 @ 14:20:28: Sinus tachycardia. Right bundle branch block EKG dated and timed 31-OCT-2016 @ 06:21:53: Sinus rhythm with premature atrial complexes. Telemetry: See above. (Clifton Agee PA-C) Assessment & Plan 76 year old female admitted secondary to probable urosepsis, lapsing into recurrent asymptomatic atrial fibrillation with a rapid ventricular response status post spontaneous conversion back to sinus rhythm on 10/31/2016 around 04: 30 AM, without overt clinical sequela. Patient admits to being without metoprolol for approximately one week. She has multiple contraindications to anticoagulation and also adamantly refuses anticoagulation. Would continue metoprolol tartrate as prescribed. If/when she develops recurrent atrial fibrillation, and is symptomatic, would consider initiation of antiarrhythmic therapy though she states she would likely refuse said treatment per our discussion today. (Clifton Agee PA-C) CARDIOLOGY ATTENDING ADDENDUM: The patient was seen and personally examined. Agree with Clifton Agee PA-C's findings and plans as documented above. She has a different personality and has been noncompliant with medications. The less the better for this difficult patient. She does not want and has a difficult time with medications. (Fareed Roland, DO)
[2016-10-31] MEDS ORDERED: NURSING VERBAL MED ORDER ONE ×2 (14:45→17:45)
[2016-10-31] MEDS: MECLIZINE HCL 12.5 MG TAB PO PRN ×2 (15:33→23:19)
[2016-10-31] MEDS ORDERED: CEFTRIAXONE SOD INJ 2000 MG in DEXTROSE 5% 50ML IV SCH (16:00)
[2016-10-31] MEDS ORDERED: SODIUM CHLORIDE 0.9% 1000ML 1,000 ML IV SCH (17:45)
[2016-10-31] MEDS: OMEGA-3 (PURIFIED FISH OIL) 1 GM CAP PO SCH (21:06)
--- NOTE | 2016-10-31 22:26 | Progress Note ---
Internal Med Progress Note Date of Service: October 31, 2016. Provider Documentation: SUBJECTIVE: denies of any SOB or discomfort no fever or chills remains rate controlled Afib wants to know when she can be discharged home OBJECTIVE: Vital Signs-as noted below Exam: General-no sign of discomfort Eyes-sclera non icteric Lungs-CTA Heart-regular S1/S2 Abdomen-soft, non tender Extremities-no lower ext edema Neuro-AAO x3, no focal deficit Lab data as noted below. ASSESSMENT & PLAN: GRAM NEGATIVE BACTEREMIA Blood cultures 10/28 positive x 2 for gram negative bacilli Presented 10/28 with fever, tachycardia, leukocytosis (15K), admitted for SIRS possible sepsis, unknown source however UA was abnormal, Vancomycin, Zosyn, Levaquin, IVF's Signed out AMA on 10/29, discharged on PO Cipro repeat blood culture obtained on 10/29 -no growth todate on IV Zosyn Consulted ID-appreciate input ATRIAL FIBRILLATION developed rapid afib overnight not responded to IV Cardizem gtt rate was controlled with IV Digoxin appreciate Cardiology eval HR remains rate controlled now Continue metoprolol Not a candidate for anticoagulation Monitor in telemetry ELEVATED TROPONIN Trop is 0.1, improved from 0.59 on 10/29 no evidence of ACS mild elevation of troponin due to rapid afib cardiology following [facility] Improving Baseline Creat 0.8 -> increased to 2.2 on 10/28 -> 1.4 today Likely prerenal from vomiting and poor PO intake IVF's Monitor PRP Avoid nephrotoxins ANEMIA History of iron deficiency anemia Hg is 8.8 from 10.1; recent baseline in 10s Possibly dilutional from IVFs, denies bleeding Monitor CBC BREAST CANCER METASTATIC On Xeloda, currently on off week, due to resume tomorrow- will hold for now On Xgeva every 4 weeks Recent PET scan 09/05/16- 1. PET/CT evidence of progressive metastatic disease. 2. Interval development of a small left pleural effusion 3. Persistent FDG avid adenopathy, soft tissue metastasis, and skeletal 4. Interval development of FDG avid hepatic masses viewed as highly suspicious for metastatic disease 5. Persistent sigmoid wall thickening which remains FDG avid 6. Increased intensity of an FDG avid lesion fusing to the left ovary with SUV maximum of 10.[address] 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 DISPOSITION Discharge home when medically stable Vital Signs: Date Time Temp Pulse Resp B/P (MAP) Pulse Ox O2 Delivery O2 Flow Rate FiO2 11/01/16 04:39 37.1 84 15 129/81 (97) 97 Room Air 11/01/16 04:00 Room Air 11/01/16 00:00 Room Air 10/31/16 23:02 37.4 79 18 132/53 (79) 96 Room Air 10/31/16 20:10 36.8 85 20 119/74 (89) 97 Room Air 10/31/16 20:00 95 Room Air 10/31/16 16:00 Room Air 10/31/16 15:43 36.8 88 18 106/63 (77) 95 Room Air 10/31/16 12:00 Room Air 10/31/16 11:43 36.6 78 16 131/74 (93) 100 Room Air 10/31/16 09:07 36.6 71 16 99/63 (75) 98 Room Air 10/31/16 08:00 Room Air Lab Results: Results Past 24 Hours Test 11/01/16 07:27 Range/Units White Blood Count 8.03 4.8-10.8 K/uL Red Blood Count 2.73 4.2-5.4 M/uL Hemoglobin 7.8 12.0-16.0 g/dL Hematocrit 23.3 37-47 % Mean Corpuscular Volume 85.3 80-100 fL Mean Corpuscular Hemoglobin 28.6 25-34 pg Mean Corpuscular Hemoglobin Concent 33.5 32-36 g/dl RDW Standard Deviation 50.0 36.4-46.3 fL RDW Coefficient of Variation 17.1 11.5-14.5 % Platelet Count 202 130-400 K/uL Mean Platelet Volume 9.2 7.4-10.4 fL
[2016-11-01 04:39] VITALS: BP 129/81; PULSE 84; TEMP 37.1; O2SAT 97
[2016-11-01] MEDS: HEPARIN SOD 5000 UNIT/0.5 ML CARP SQ SCH (06:00)
[2016-11-01 07:36] LABS: HEMATOCRIT 23.3 % (37-47); MEAN CELL VOLUME 85.3 fL (80-100); MEAN CORPUSCULAR HEMOGLOBIN 28.6 pg (25-34); MEAN CORPUSCULAR HGB CONC 33.5 g/dl (32-36); MEAN PLATELET VOLUME 9.2 fL (7.4-10.4); PLATELET COUNT 202 K/uL (130-400); RED BLOOD COUNT 2.73 M/uL (4.2-5.4); WHITE BLOOD COUNT 8.03 K/uL (4.8-10.8)
[2016-11-01 08:04] LABS: BUN/CREATININE RATIO 16.4 (10-20); CREATININE 1.2 mg/dl (0.60-1.20); MAGNESIUM 2.4 mg/dl (1.8-2.4); POTASSIUM 3.3 mmol/L (3.5-5.1)
[2016-11-01 08:13] VITALS: BP 125/76; PULSE 79; TEMP 37; O2SAT 95
[2016-11-01 08:50] LABS: CALCIUM 7.3 mg/dl (8.5-10.1)
[2016-11-01] MEDS: CHOLECALCIFEROL 1000 INTER.UNIT TAB PO SCH (09:59)
[2016-11-01] MEDS: METOPROLOL TARTRATE 25 MG TAB PO SCH (09:59)
[2016-11-01] MEDS: BuPROPion SR 150 MG TABCR PO SCH (10:00)
--- NOTE | 2016-11-01 10:06 | Infectious Disease Progress Nt ---
Progress Note Date of Service Nov 01, 2016. Subjective Pt evaluation today including: conversation w/ patient, physical exam, chart review, lab review, review of studies, conversation w/ insolvency consultant, review of inpatient medication list Patient is feeling much better today and would like to go home. Her repeat blood cultures this admission have shown no growth to date. Urine culture is pending. Previously blood cultures with pansensitive E. Coli. She denies N/V/D, abdominal pain, urinary symptoms, sweats or chills. WBC count this morning was 8.03, and her Hgb was lower at 7.8. Creatinine trended down to 1.20 now. She is currently on IV Ceftriaxone and is tolerating this medication well. I did discuss this patient with Dr. Thorpe. All Other Systems: Reviewed and Negative Medications Current Inpatient Medications Medications (Trade) Dose Ordered Sig/Zeferino Route Start Time Stop Time Status Last Admin Dose Admin Acetaminophen (Tylenol Tab) 650 mg Q4H PRN PO 10/30/16 14:00 11/29/16 13:59 10/31/16 01:22 650 MG Al Hydrox/Mg Hydrox/Simethicone (Maalox Max Susp) 15 ml Q4H PRN PO 10/30/16 14:00 11/29/16 13:59 Magnesium Hydroxide (Milk Of Magnesia Susp) 30 ml Q6H PRN PO 10/30/16 14:00 11/29/16 13:59 Polyethylene (Miralax Powder Packet) 17 gm DAILY PRN PO 10/30/16 14:00 11/29/16 13:59 Zolpidem Tartrate (Ambien Tab) 5 mg HSZ PRN PO 10/30/16 14:00 11/29/16 13:59 Ondansetron HCl (Zofran Inj) 4 mg Q6H PRN IV 10/30/16 14:00 11/29/16 13:59 Bupropion HCl (Wellbutrin-Sr Tab) 150 mg BID PO 10/30/16 21:00 11/29/16 20:59 11/01/16 10:00 150 MG Cholecalciferol (Vitamin D Tab) 6,000 inter.unit DAILY PO 10/31/16 09:00 11/30/16 08:59 11/01/16 09:59 6,000 INTER.UNIT Fish Oil ([place]-3 (Purified Fish Oil) Cap) 1 gm HS PO 10/30/16 21:00 11/29/16 20:59 10/31/16 21:06 1 GM Lorazepam (Ativan Tab) 0.5 mg Q8 PRN PO 10/30/16 14:00 11/29/16 13:59 Metoprolol Tartrate (Lopressor Tab) 25 mg BID PO 10/30/16 21:00 11/29/16 20:59 Future Hold 10/30/16 21:13 25 MG Ondansetron HCl (Zofran Tab) 8 mg TID PRN PO 10/30/16 14:00 11/29/16 13:59 Prochlorperazine Maleate (Compazine Tab) 10 mg Q6H PRN PO 10/30/16 14:00 11/29/16 13:59 Heparin Sodium (Porcine) (Heparin Sq 5000 Unit/0.5ml) 5,000 unit Q8 SQ 10/30/16 22:00 11/29/16 21:59 Metoprolol Tartrate (Lopressor Tab) 25 mg BID PO 10/31/16 09:00 11/30/16 08:59 11/01/16 09:59 25 MG Meclizine HCl (Antivert Tab) 12.5 mg Q8 PRN PO 10/31/16 14:45 11/30/16 14:44 10/31/16 23:19 12.5 MG Cephalexin Monohydrate (Keflex Cap) 500 mg TID PO 11/01/16 14:00 11/11/16 13:59 Objective Vital Signs Date Time Temp Pulse Resp B/P (MAP) Pulse Ox O2 Delivery O2 Flow Rate FiO2 11/01/16 08:13 37.0 79 16 125/76 (92) 95 Room Air 11/01/16 04:39 37.1 84 15 129/81 (97) 97 Room Air 11/01/16 04:00 Room Air 11/01/16 00:00 Room Air 10/31/16 23:02 37.4 79 18 132/53 (79) 96 Room Air 10/31/16 20:10 36.8 85 20 119/74 (89) 97 Room Air 10/31/16 20:00 95 Room Air 10/31/16 16:00 Room Air 10/31/16 15:43 36.8 88 18 106/63 (77) 95 Room Air 10/31/16 12:00 Room Air 10/31/16 11:43 36.6 78 16 131/74 (93) 100 Room Air Physical Exam General Appearance: no apparent distress, + thin Eyes: normal inspection, sclerae normal ENT: hearing grossly normal Neck: supple, trachea midline Respiratory/Chest: no respiratory distress, no accessory muscle use Cardiovascular: + pertinent finding (regular rate) Extremities: normal range of motion Neurologic/Psychiatric: alert, normal mood/affect Skin: normal color, warm/dry, no rash Laboratory Results Item Value Date Time MRSA DNA Surveillance Screen - Final Complete 10/30/16 1600 Nasal Specimen Negative for MRSA by DNA Probe Urine Culture Received 10/30/16 1600 Urine , Clean Catch Pending Blood Culture - Preliminary Resulted 10/30/16 1335 Blood NO GROWTH TO DATE. Blood Culture - Preliminary Resulted 10/30/16 1325 Blood NO GROWTH TO DATE. Last 24 Hours Test 11/01/16 07:27 White Blood Count 8.03 K/uL Red Blood Count 2.73 M/uL Hemoglobin 7.8 g/dL Hematocrit 23.3 % Mean Corpuscular Volume 85.3 fL Mean Corpuscular Hemoglobin 28.6 pg Mean Corpuscular Hemoglobin Concent 33.5 g/dl RDW Standard Deviation 50.0 fL RDW Coefficient of Variation 17.1 % Platelet Count 202 K/uL Mean Platelet Volume 9.2 fL Sodium Level 145 mmol/L Potassium Level 3.3 mmol/L Chloride Level 113 mmol/L Carbon Dioxide Level 24 mmol/L Anion Gap 8.0 mmol/L Blood Urea Nitrogen 20 mg/dl Creatinine 1.20 mg/dl Est Creatinine Clear Calc Drug Dose 35.0 ml/min Estimated GFR () 51.2 Estimated GFR (Non- 44.2 BUN/Creatinine Ratio 16.4 Random Glucose 92 mg/dl Calcium Level 7.3 mg/dl Magnesium Level 2.4 mg/dl Assessment and Plan Patient with E. Coli bacteremia and possible UTI. The patient's repeat blood cultures are showing no growth, and repeat urine culture is pending. Because patient is feeling better and repeat cultures have been negative thus far, feel that she can transition to PO Omnicef 300 mg BID x 12 more days to complete 14 days. Otherwise, OK for D/C from ID perspective. Thank you PROVIDER ADDENDUM: Patient reviewed with Ms. Soliman. Agree with above assessment.
[2016-11-01] MEDS: POTASSIUM CHLORIDE 10 MEQ TABCR PO ONE ×2 (10:30→11:29)
--- NOTE | 2016-11-01 10:52 | Cardiology Follow-Up ---
Subjective General Date of Service: Nov 01, 2016. Chief Complaint: Atrial fibrillation Pt evaluation today including: conversation w/ patient, physical exam, chart review, lab review, review of studies, review of inpatient medication list History of Present Illness Patient seen and examined. Anxious to return home. Notes having a poor night's sleep Denies chest pain, palpitations, or dyspnea. Telemetry: Sinus. 11 beat run of SVT at 02:42:38, asymptomatic. Allergies Coded Allergies: Sulfa Antibiotics (Verified Allergy, Unknown, NAUSEA AND VOMITNG, 10/28/16) Social History Smoking Status: Former Smoker Hx Tobacco Use In Past Year?: No Hx Alcohol Use - Type And Amou: Yes (occasional wine) Hx Substance Use - Type And Am: No Problem List Medical Problems: (1) Atrial fibrillation with rapid ventricular response Status: Acute (2) Gram negative sepsis Status: Acute (3) Sepsis Status: Acute Physical Exam Vital Signs Last Vital Signs Documentation Date Time Temp Pulse Resp B/P (MAP) Pulse Ox O2 Delivery O2 Flow Rate FiO2 11/01/16 08:13 37.0 79 16 125/76 (92) 95 Room Air Physical Exam Constitutional: Level of Distress: NAD Psychiatric: Mental Status: active & alert Orientation: to time, to place, to person Memory: recent memory normal, remote memory normal Head: normocephalic Neck: pertinent finding (Normal JVP) Lungs: Auscultation: CTA except as noted, no wheezing, no rales/crackles, no rhonchi, pertinent finding (absent breath sounds at the right base) Cardiovascular: Heart Auscultation: RRR (78 bpm), normal S1, normal S2, no murmurs, no rubs Peripheral Pulses: Dorsalis Pedis Pulse: normal on the left, normal on the right Musculoskeletal: normal Extremities: no cyanosis, no edema, no clubbing Neurologic: Cranial Nerves: grossly intact Assessment and Plan Assessment and Plan 76 year old female admitted secondary to probable urosepsis, lapsing into recurrent asymptomatic atrial fibrillation with a rapid ventricular response status post spontaneous conversion back to sinus rhythm on 10/31/2016 around 04: 30 AM, without overt clinical sequela. Patient admits to being without metoprolol for approximately one week. She has multiple contraindications to anticoagulation and also adamantly refuses said treatment. Would continue metoprolol tartrate as presently prescribed. She agrees to potassium supplementation. If/when she develops recurrent atrial fibrillation, and is symptomatic, would consider initiation of antiarrhythmic therapy though she states she would likely refuse said treatment per our discussion on 10/31/2016. Please call with any questions or concerns. Call 911 and go to the Emergency Room if: * You have tightness or pain in your chest that does not go away with rest or Nitroglycerin * You are very short of breath even with rest Call your doctor if any of the following symptoms or problems start or get worse: * Shortness of breath or difficulty breathing * Wake up at night short of breath * Chest pain * Cough * Swelling of your hands, fee, or legs * More fatigued or tired with your normal activity * Palpitations - sudden fast heart beats WEIGHT * Weigh yourself every morning after using the bathroom. * Use the same scale. * Wear the same amount of clothing. * Write your weight down on your chart. * Call your doctor if you gain more than 2-3 pounds in 1-2 days. MEDICATIONS * Use this discharge instruction sheet for instructions. * Take your medications at the time your doctor ordered. * Do not skip a dose of your medicines. * If you miss a dose of medicine, take as soon as possible, but DO NOT DOUBLE A DOSE. * Read your medicine information when you get home. * Know all of the side effects of your medicine. * Call your doctor's office if you have any side effects. * Be sure all of your doctors know what medicine and herbs you take (including cold, flu, and herbal medicine). * Pain Medicine: If you do not get relief from your pain, please call your doctor for help. Take the following with you to your follow-up doctor appointments: * Weight Chart * Medication List * List of questions Do not drink excessive alcohol, beer or wine. CARDIOLOGY ATTENDING ADDENDUM: The patient was seen and personally examined. Agree with Clifton Agee PA-C's findings and plans as documented above. Laboratory Results Last 24 Hours Test 11/01/16 07:27 White Blood Count 8.03 K/uL Red Blood Count 2.73 M/uL Hemoglobin 7.8 g/dL Hematocrit 23.3 % Mean Corpuscular Volume 85.3 fL Mean Corpuscular Hemoglobin 28.6 pg Mean Corpuscular Hemoglobin Concent 33.5 g/dl RDW Standard Deviation 50.0 fL RDW Coefficient of Variation 17.1 % Platelet Count 202 K/uL Mean Platelet Volume 9.2 fL Sodium Level 145 mmol/L Potassium Level 3.3 mmol/L Chloride Level 113 mmol/L Carbon Dioxide Level 24 mmol/L Anion Gap 8.0 mmol/L Blood Urea Nitrogen 20 mg/dl Creatinine 1.20 mg/dl Est Creatinine Clear Calc Drug Dose 35.0 ml/min Estimated GFR () 51.2 Estimated GFR (Non- 44.2 BUN/Creatinine Ratio 16.4 Random Glucose 92 mg/dl Calcium Level 7.3 mg/dl Magnesium Level 2.4 mg/dl
[2016-11-01] MEDS ORDERED: CEFD300C2 PO (11:23)
--- NOTE | 2016-11-01 11:27 | Discharge Instructions ---
Discharge Instructions Date of Service Nov 01, 2016. Admission Reason for Admission: Gram-Negative Bacteremia, Tachycardia Discharge Discharge Diagnosis / Problem: GRAM NEGATIVE BACTEREMIA /METASTATIC BREAST CANCER Discharge Goals Goal(s): Decrease discomfort, Diagnostic testing, Therapeutic intervention Activity Recommendations Activity Limitations: resume your previous activity . Instructions / Follow-Up Instructions / Follow-Up HOSPITAL FOLLOW UP WITH DR VALERY LOWERY ON Saturday11/08/16 @ 11: 05 AM PLEASE TAKE ALL THE MEDICATIONS INSTRUCTED -DO NOT MISS OR SKIP DOSE PLEASE COMPLETE ANTIBIOTIC COURSE FOR TOTAL 12 DAYS NEED LAB WORK : COMPLETE METABOLIC PANEL , BASIC METABOLIC PANEL TO BE CHECKED ON NEXT OFFICE VISIT 11/08/16 Current Hospital Diet Patient's current hospital diet: Regular Diet Discharge Diet Recommended Diet: Regular Diet Pending Studies Studies pending at discharge: no Medical Emergencies . Who to Call and When: Medical Emergencies: If at any time you feel your situation is an emergency, please call 911 immediately. . Non-Emergent Contact Non-Emergency issues call your: Primary Care Provider . . "Provider Documentation" section prepared by Denisse Thorpe. . VTE Core Measure Inpt VTE Proph given/why not?: Unfractionated heparin SQ
[2016-11-01 11:31] VITALS: BP 125/76; PULSE 79; TEMP 37; O2SAT 95
--- NOTE | 2016-11-01 11:31 | Progress Note ---
Internal Med Progress Note Date of Service: Nov 01, 2016. Provider Documentation: SUBJECTIVE: feels fine remains in rate controlled Afib no fever or chills eager to be discharged home OBJECTIVE: Vital Signs-as noted below Exam: General-no sign of discomfort Eyes-sclera non icteric Lungs-CTA Heart-regular S1/S2 Abdomen-soft, non tender Extremities-no lower ext edema Neuro-AAO x3, no focal deficit Lab data as noted below. ASSESSMENT & PLAN: GRAM NEGATIVE BACTEREMIA Blood cultures 10/28 -E .Coli /pansensitive Presented 10/28 with fever, tachycardia, leukocytosis (15K), admitted for SIRS possible sepsis, unknown source however UA was abnormal, Vancomycin, Zosyn, Levaquin, IVF's Signed out AMA on 10/29, discharged on PO Cipro repeat blood culture obtained on 10/29 -no growth Consulted ID-appreciate input pt can transition to PO Omnicef 300 mg BID x 12 more days to complete 14 days stable to be discharged home with oral meds ATRIAL FIBRILLATION developed rapid afib overnight HR remains rate controlled appreciate Cardiology eval Continue metoprolol Not a candidate for anticoagulation pt is counselled not to skip medications ( was not taking Lopressor for a week as she was not feeling well ) ELEVATED TROPONIN Trop is 0.1, improved from 0.59 on 10/29 no evidence of ACS mild elevation of troponin due to rapid afib cardiology following USHA resolved Baseline Creat 0.8 -> increased to 2.2 on 10/28 -> 1.4 -> 1.2 given IVF ANEMIA History of iron deficiency anemia Hg is 8.8 -> 7. 7 from 10.1; recent baseline in 10s Possibly dilutional from IVFs, denies bleeding Monitor CBC will need out pt blood work to be checked BREAST CANCER METASTATIC On Xeloda, currently on off week, due to resume tomorrow- will hold for now On Xgeva every 4 weeks Recent PET scan 09/05/16- 1. PET/CT evidence of progressive metastatic disease. 2. Interval development of a small left pleural effusion 3. Persistent FDG avid adenopathy, soft tissue metastasis, and skeletal 4. Interval development of FDG avid hepatic masses viewed as highly suspicious for metastatic disease 5. Persistent sigmoid wall thickening which remains FDG avid 6. Increased intensity of an FDG avid lesion fusing to the left ovary with SUV maximum of 10.[address] 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 DISPOSITION Discharge home today Vital Signs: Date Time Temp Pulse Resp B/P (MAP) Pulse Ox O2 Delivery O2 Flow Rate FiO2 11/01/16 08:13 37.0 79 16 125/76 (92) 95 Room Air 11/01/16 08:00 Room Air 11/01/16 04:39 37.1 84 15 129/81 (97) 97 Room Air 11/01/16 04:00 Room Air 11/01/16 00:00 Room Air 10/31/16 23:02 37.4 79 18 132/53 (79) 96 Room Air 10/31/16 20:10 36.8 85 20 119/74 (89) 97 Room Air 10/31/16 20:00 95 Room Air 10/31/16 16:00 Room Air 10/31/16 15:43 36.8 88 18 106/63 (77) 95 Room Air 10/31/16 12:00 Room Air 10/31/16 11:43 36.6 78 16 131/74 (93) 100 Room Air Lab Results: Results Past 24 Hours Test 11/01/16 07:27 Range/Units White Blood Count 8.03 4.8-10.8 K/uL Red Blood Count 2.73 4.2-5.4 M/uL Hemoglobin 7.8 12.0-16.0 g/dL Hematocrit 23.3 37-47 % Mean Corpuscular Volume 85.3 80-100 fL Mean Corpuscular Hemoglobin 28.6 25-34 pg Mean Corpuscular Hemoglobin Concent 33.5 32-36 g/dl RDW Standard Deviation 50.0 36.4-46.3 fL RDW Coefficient of Variation 17.1 11.5-14.5 % Platelet Count 202 130-400 K/uL Mean Platelet Volume 9.2 7.4-10.4 fL Sodium Level 145 136-145 mmol/L Potassium Level 3.3 3.5-5.1 mmol/L Chloride Level 113 98-107 mmol/L Carbon Dioxide Level 24 21-32 mmol/L Anion Gap 8.0 3-11 mmol/L Blood Urea Nitrogen 20 7-18 mg/dl Creatinine 1.20 0.60-1.20 mg/dl Est Creatinine Clear Calc Drug Dose 35.0 ml/min Estimated GFR () 51.2 Estimated GFR (Non- 44.2 BUN/Creatinine Ratio 16.4 10-20 Random Glucose 92 70-99 mg/dl Calcium Level 7.3 8.5-10.1 mg/dl Magnesium Level 2.4 1.8-2.4 mg/dl
--- NOTE | 2016-11-01 11:35 | Discharge Summary ---
Discharge Summary Date of Service Nov 01, 2016. Discharge Summary Admission Date: October 30, 2016 at 14:32 Discharge Date: Nov 01, 2016 Principal Diagnosis: GRAM NEGATIVE BACTEREMIA /METASTATIC BREAST CANCER Consultations: ID -DR [id number] Pending Studies/Follow-Up: NEED LAB WORK : COMPLETE METABOLIC PANEL , BASIC METABOLIC PANEL TO BE CHECKED ON NEXT OFFICE VISIT 11/08/16 Medication Reconciliation New Medications: Cefdinir (Omnicef) 300 Mg Cap 1 CAP PO BID for 12 Days, #24 CAP Continued Medications: Alpha-Lipoic Acid (Thioctic Ac (Alpha Lipoic Acid) Unknown Strength Tab 1 TAB PO DAILY Bee Pollen (Bee Pollen) Unknown Strength Cap 3 CAP PO HS Bupropion (Wellbutrin Sr) 150 Mg Ertab 150 MG PO BID *BRAND NAME* Calcium W/ Magnesium (Calcium & Magnesium) 1 Tab Tab 1 TAB PO DAILY Cholecalciferol (Vitamin D) 1,000 Unit Tab 6000 UNITS PO DAILY Coenzyme Q10 (Ubidecarenone) (Coq-10) 50 Mg Cap 50-100 MG PO HS Digestive Enzymes (Digestive Enzymes) 1 Tab Tab 1 TAB PO DAILY Fish Oil ([place]-3) 1 Ea Cap 1 CAP PO HS Oheutmxmnqz-Runspvgdaeh-Omz C- (Glucosamine Chondroitin) 1 Cap Cap 2 CAP PO HS Lorazepam (Ativan) 0.5 Mg Tab 1-2 TABS PO DAILY PRN for Anxiety Metoprolol Tartrate (Lopressor) (Lopressor) 25 Mg Tab 25 MG PO BID Ondansetron Hcl (Zofran) 8 Mg Tab 8 MG PO TID PRN for Nausea Potassium (Potassium) Unknown Strength Tab 1 TAB PO HS Probiotic Product (Probiotic) 1 Tab Tab 1 TAB PO HS Prochlorperazine Maleate (Compazine) 10 Mg Tab 10 MG PO Q6H PRN for Nausea Selenium (Selenium) 100 Mcg Tab 100 MCG PO HS [Citramax] () 1 TAB PO AC Discontinued Medications: Ciprofloxacin Hcl (Cipro) 500 Mg Tab 500 MG PO BID PICKED UP 10/29/16 X 7 DAYS Referrals At Discharge Follow up Referrals: Physician Referral - 11/08/16 with Valery Davis M.D. Admission Information HPI (per Admitting provider): This is a 76 y/o female with PMH of metastatic breast CA on Xeloda, hypertension , atrial fibrillation, who presents to the ED with malaise and chills. Pt follows with Dr. Valery Davis for primary care and Dr. Oliver Davis for oncology. 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 Patient also noted to have USHA and hypokalemia. Blood culture x 1 from 10/28 was positive for gram negative bacilli, however patient signed out AMA. Was given Cipro on discharge which she took, last dose this am. She reports leaving because she "felt fine" yesterday, however today developed malaise and chills. This morning she received a call from the hospital about her positive blood cultures x 2 growing gram negative bacilli. This morning she had diffuse abdominal discomfort with 1 episode of diarrhea and took 2 Imodium. No further BM. She admits to nausea. Pt had vomiting last week after eating Mong[place]ian food. Pt reports having urinary symptoms a few days ago which resolved. Pt also admits to sinus congestion. She reports "always" feeling dizzy. Uses a cane intermittently. She was febrile to 38.3 on 10/28 in the ER but denies subsequent fever. Denies rhinorrhea, sore throat, ear ache, BEJARANO, cough, SOB, chest pain, calf pain, myalgias, edema, abnormal bleeding. She is on her off week for Xeloda and is due to resume it tomorrow. Physical Exam (per Admitting): General Appearance: + thin, + pertinent finding (elderly female, alert, irritable but cooperates with exam) Head: normocephalic, atraumatic Eyes: normal inspection, PERRL, EOMI, sclerae normal ENT: normal ENT inspection, hearing grossly normal, pharynx normal, + pertinent finding (+ sinus tenderness bilateral frontal and maxillary sinuses. no nasal discharge. ) Neck: supple, no adenopathy, trachea midline Respiratory/Chest: lungs clear, normal breath sounds, no respiratory distress, no accessory muscle use Cardiovascular: no murmur, + tachycardia (regular rhythm, rate 90s) Abdomen/GI: normal bowel sounds, soft, + pertinent finding (mild suprapubic tenderness) Back: normal inspection Extremities/Musculoskelatal: no calf tenderness, no pedal edema Neurologic/Psych: alert, normal mood/affect, oriented x 3, + pertinent finding (speech clear, no dysarthria, no focal deficit on gross examination) Skin: normal color, warm/dry Hospital Course GRAM NEGATIVE BACTEREMIA Blood cultures 10/28 -E .Coli /pansensitive Presented 10/28 with fever, tachycardia, leukocytosis (15K), admitted for SIRS possible sepsis, unknown source however UA was abnormal, Vancomycin, Zosyn, Levaquin, IVF's Signed out AMA on 10/29, discharged on PO Cipro repeat blood culture obtained on 10/29 -no growth Consulted ID-appreciate input pt can transition to PO Omnicef 300 mg BID x 12 more days to complete 14 days stable to be discharged home with oral meds ATRIAL FIBRILLATION developed rapid afib overnight HR remains rate controlled appreciate Cardiology eval Continue metoprolol Not a candidate for anticoagulation pt is counselled not to skip medications ( was not taking Lopressor for a week as she was not feeling well ) ELEVATED TROPONIN Trop is 0.1, improved from 0.59 on 10/29 no evidence of ACS mild elevation of troponin due to rapid afib cardiology following USHA resolved Baseline Creat 0.8 -> increased to 2.2 on 10/28 -> 1.4 -> 1.2 given IVF ANEMIA History of iron deficiency anemia Hg is 8.8 -> 7. 7 from 10.1; recent baseline in 10s Possibly dilutional from IVFs, denies bleeding Monitor CBC will need out pt blood work to be checked BREAST CANCER METASTATIC On Xeloda, currently on off week, due to resume tomorrow- will hold for now On Xgeva every 4 weeks Recent PET scan 09/05/16- 1. PET/CT evidence of progressive metastatic disease. 2. Interval development of a small left pleural effusion 3. Persistent FDG avid adenopathy, soft tissue metastasis, and skeletal 4. Interval development of FDG avid hepatic masses viewed as highly suspicious for metastatic disease 5. Persistent sigmoid wall thickening which remains FDG avid 6. Increased intensity of an FDG avid lesion fusing to the left ovary with SUV maximum of 10.[address] 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 Discharge Instructions Discharge Instructions Date of Service Nov 01, 2016. Admission Reason for Admission: Gram-Negative Bacteremia, Tachycardia Discharge Discharge Diagnosis / Problem: GRAM NEGATIVE BACTEREMIA /METASTATIC BREAST CANCER Discharge Goals Goal(s): Decrease discomfort, Diagnostic testing, Therapeutic intervention Activity Recommendations Activity Limitations: resume your previous activity . Instructions / Follow-Up Instructions / Follow-Up HOSPITAL FOLLOW UP WITH DR VALERY DAVIS ON Saturday11/08/16 @ 11: 05 AM PLEASE TAKE ALL THE MEDICATIONS INSTRUCTED -DO NOT MISS OR SKIP DOSE PLEASE COMPLETE ANTIBIOTIC COURSE FOR TOTAL 12 DAYS NEED LAB WORK : COMPLETE METABOLIC PANEL , BASIC METABOLIC PANEL TO BE CHECKED ON NEXT OFFICE VISIT 11/08/16 Current Hospital Diet Patient's current hospital diet: Regular Diet Discharge Diet Recommended Diet: Regular Diet Pending Studies Studies pending at discharge: no Medical Emergencies . Who to Call and When: Medical Emergencies: If at any time you feel your situation is an emergency, please call 911 immediately. . Non-Emergent Contact Non-Emergency issues call your: Primary Care Provider . . "Provider Documentation" section prepared by Denisse Thorpe. . VTE Core Measure Inpt VTE Proph given/why not?: Unfractionated heparin SQ Additional Copies To Valery Davis M.D.
[2016-11-01] MEDS ORDERED: CEPHALEXIN MONOHYDRATE 500 MG CAP PO SCH (14:00)
--- NOTE | 2016-11-03 17:06 | EDITING REQUIRED CODING QUERY ---
SEPSIS To promote full compliance with coding requirements relating to patient care, physician participation is requested in all cases of medical record coder uncertainty. Please assist us with the question(s) below: In responding to this query, please exercise your independent professional judgement. The fact that a question is asked does not imply that any particular answer is desired or expected. We appreciate your clarification on this issue. Dr. Thorpe, Please clarify this patient's the two questions regarding this patient's diagnosis below: Findings of bacteremia with acute kidney failure documented. Did the patient have: x()Bacteremia (Nonspecific laboratory finding of bacteria in the blood) Specify Organism (x) Present on Admission () Not present on admission () Unable to clinically determine () Septicemia (Systemic disease associated with the presence of pathogenic microorganisms in the blood): Specify Organism () Present on Admission () Not present on admission () Unable to clinically determine () Sepsis Specify Organism Specify Associated Condition/Diagnosis () Present on Admission () Not present on admission () Unable to clinically determine () Severe Sepsis (Sepsis associated with acute organ dysfunction) Specify Organism Specify Associated Condition/Diagnosis () Present on Admission () Not present on admission () Unable to clinically determine () Septic Shock (Severe sepsis with acute circulatory failure, unexplained by other causes) () Present on Admission () Not present on admission () Unable to clinically determine () Other, patient has: Also, possible UTI is documented throughout the chart. Please clarify if: ( ) UTI was present and treated during this encounter ( x ) UTI was ruled out ( ) Other, please explain Thank you for your time, JOHN Mondragon, MERCHANDISING STOCK ASSOCIATE
== END 2016-11-01 11:58 | disposition home or self-care (01) | DRG 872 ==
LOC: ENRESERVDT → ENRESERVTM → EDBD 11:30 → C.EDC 11:31 → EDBEDREQ 13:56 → C.2T 14:32 → EDBEDREQSVC 14:33 → EDBEDREQ 14:33 → EDBEDREQTM 14:40 → EDBEDREQ 14:41
PROVIDERS: ADMIT Hospitalist; ATTEND Hospitalist
DX: R78.81 Bacteremia (principal); N17.9 Acute kidney failure, unspecified; C79.89 Secondary malignant neoplasm of other specified sites; C78.7 Secondary malignant neoplasm of liver and intrahepatic bile duct; C79.60 Secondary malignant neoplasm of unspecified ovary; C78.5 Secondary malignant neoplasm of large intestine and rectum; C79.31 Secondary malignant neoplasm of brain; C79.51 Secondary malignant neoplasm of bone; C50.919 Malignant neoplasm of unspecified site of unspecified female breast; B96.20 Unspecified Escherichia coli [E. coli] as the cause of diseases classified elsewhere; I48.91 Unspecified atrial fibrillation; R77.8 Other specified abnormalities of plasma proteins; D50.9 Iron deficiency anemia, unspecified; D63.8 Anemia in other chronic diseases classified elsewhere; I12.9 Hypertensive chronic kidney disease with stage 1 through stage 4 chronic kidney disease, or unspecified chronic kidney disease; N18.3 Chronic kidney disease, stage 3 (moderate); F41.9 Anxiety disorder, unspecified; Z91.19 Patient's noncompliance with other medical treatment and regimen; Z86.718 Personal history of other venous thrombosis and embolism; Z96.619 Presence of unspecified artificial shoulder joint; Z87.891 Personal history of nicotine dependence; Z79.899 Other long term (current) drug therapy

== ENCOUNTER → 2017-07-15 | Outpatient (CLI) | payer OTHER, MEDICARE ==
[~2017-07-15] MED LIST changes: -ALPH100T PO; +ALPH1TAB PO; -ANR PO; -ASPCH81X PO; -BEE POLLEN PO; +BEE580CA PO; +BUPR-79 PO; -BUPR150T47 PO; +CALC-214 PO; -CALC1TAB25 PO; +CHOL100010 PO; -CHOL100027 PO; -CIPR-255 PO; -COEN50CA2 PO; +COEN50CA9 PO; -DIGE1CAP7 PO; +DIGE1TAB PO; -FSMD/70 PO; +GLUC1CAP35 PO; -GLUCCAP PO; -HYDR-5688 PO; -LPR25 PO; +METO25TA56 PO; +OMEG10007 PO; -OMEG12006 PO; +ONDA8TAB6 PO; +POTA99TA PO; -POTASSIUM PO; +PROB1TAB16 PO; +PROC1TAB5 PO; -VITA10004 PO; +[UNRECOGNIZED DRUG - OTHER] PO; -[UNRECOGNIZED DRUG - OTHER] PO; -[UNRECOGNIZED DRUG - OTHER] PO; -[UNRECOGNIZED DRUG - OTHER] PO
--- NOTE | 2017-07-16 10:37 | DIAGNOSTIC IMAGING REPORT ---
PET/CT CLINICAL HISTORY: Metastatic breast cancer. Possible colon cancer. TECHNIQUE: A PET/CT was performed from the skull base through the upper thighs following intravenous injection of 10.08 mCi of F 18 FDG IV. The injection was performed at 11:46 AM on July 15, 2017 and imaging began at 11:47 AM on July 15, 2017. Unenhanced CT was performed for attenuation correction purposes and anatomic localization. COMPARISON STUDY: PET/CT September 05, 2016. FINDINGS: Head and neck: No cervical lymphadenopathy is present. There is no abnormal FDG uptake within the neck. Chest: A small complex right pleural effusion has decreased in size since exam of September 05, 2016. Right pleural hyperdensity suggests a prior pleurodesis. Marked multifocal FDG uptake within the right pleura has slightly increased since prior exam with an SUV max of 8.1. This may be related to prior pleurodesis. A left pleural effusion has resolved. Mild dilatation of the ascending aorta, measuring 4 cm is unchanged. Right lower lobe and right middle lobe airspace opacities with volume loss suggests round atelectasis. Multifocal dewayne uptake has resolved. Mild focal right hilar FDG uptake persists but has improved since prior exam. SUV max is now 4.5. It previously measured 4.8. Abdomen and Pelvis: Multifocal dewayne FDG uptake has resolved. Uptake within suspected liver metastases shown on prior exam has also resolved. There is no abnormal FDG uptake within the liver. No abdominal or pelvic lymphadenopathy is identified on this exam. A pessary is in place. There is persistent moderate uptake within the sigmoid colon with an SUV max of 5.6. Mild colonic wall thickening within the sigmoid colon is again noted. Left pelvic side wall/adnexal FDG uptake is no longer identified. Musculoskeletal: Numerous sclerotic metastases are again noted. FDG uptake associated with these lesions has markedly diminished. No new lesions are identified. There is no evidence for progressive osseous metastatic disease. IMPRESSION: 1. Findings consistent with a significant treatment response since PET/CT of September 05, 2016. Resolution of FDG uptake within hepatic metastases. Near complete resolution of dewayne FDG uptake with mild residual right hilar FDG uptake. Decrease in size of a small right pleural effusion with resolution of a left pleural effusion. Slight increase in marked multifocal FDG uptake within the right pleura is likely related to pleurodesis. Progressive metastatic disease is considered less likely although could appear similar. 2. Persistent moderate focal sigmoid colon FDG uptake with wall thickening which remains nonspecific. A colonic malignancy could have this appearance. 3. Resolution of previously described left pelvic/ovarian FDG uptake. Electronically signed by: Flavio Yan M.D. 07/16/2017 10:36 AM Dictated Date/Time: 07/15/2017 2:57 PM
== END | disposition home or self-care (01) ==
LOC: C.PET 10:46
PROVIDERS: ATTEND Internal Medicine Hematology
DX: C79.51 Secondary malignant neoplasm of bone (principal); C50.011 Malignant neoplasm of nipple and areola, right female breast; C50.612 Malignant neoplasm of axillary tail of left female breast; C78.7 Secondary malignant neoplasm of liver and intrahepatic bile duct

== ENCOUNTER 2018-01-28 15:39 | Emergency (ER) | payer OTHER, MEDICARE ==
[~2018-01-28] VITALS: Ht 162.6 cm; Wt 65.0 kg
[~2018-01-28 15:39] MED LIST changes: +ONDA-170 PO; -ONDA8TAB6 PO; +PROC10TA PO; -PROC1TAB5 PO
[2018-01-28 15:41] VITALS: BP 125/85; PULSE 123; TEMP 37.1; O2SAT 97; Ht 162.6 cm; Wt 65.0 kg
[2018-01-28 16:31] LABS: BASO % 0.2 %; BASO ABS # 0.02 K/uL (0-0.2); EOS % 0.7 %; EOS ABS # 0.08 K/uL (0-0.5); HEMATOCRIT 31.9 % (37-47); HEMOGLOBIN 10.2 g/dL (12.0-16.0); IG# 0.02 K/uL (0.00-0.02); LYMPH % 11.8 %; LYMPH ABS # 1.36 K/uL (1.2-3.4); MEAN CELL VOLUME 97.6 fL (80-100); MEAN CORPUSCULAR HEMOGLOBIN 31.2 pg (25-34); MEAN PLATELET VOLUME 10.1 fL (7.4-10.4); MONO % 15.6 %; NEUT % 71.5 %; NEUT ABS # 8.28 K/uL (1.4-6.5); PLATELET COUNT 306 K/uL (130-400); RED CELL DISTRIBUTION WIDTH SD 56.8 fL (36.4-46.3); WHITE BLOOD COUNT 11.56 K/uL (4.8-10.8)
[2018-01-28 16:39] LABS: INR 1.1 (0.9-1.1); PTT PATIENT 34.4 SECONDS (21.0-31.0)
[2018-01-28] MEDS ORDERED: VITACAP38 PO (16:47)
[2018-01-28] MEDS ORDERED: OMEG1CAP71 PO (16:47)
[2018-01-28] MEDS ORDERED: HYDR-5688 PO (16:47)
[2018-01-28] MEDS ORDERED: BEE POLLEN PO (16:47)
[2018-01-28] MEDS ORDERED: XLD/500 PO (16:47)
[2018-01-28] MEDS ORDERED: ASPI81TA28 PO (16:47)
[2018-01-28] MEDS ORDERED: ALPH100T PO (16:47)
[2018-01-28 16:52] LABS: ALBUMIN 3.3 gm/dl (3.4-5.0); ALKALINE PHOSPHATASE 91 U/L (45-117); ALT/SGPT 18 U/L (12-78); AST/SGOT 19 U/L (15-37); CKMB < 1.0 ng/ml (0.5-3.6); LIPASE 75 U/L (73-393); TOTAL PROTEIN 7.8 gm/dl (6.4-8.2)
--- NOTE | 2018-01-28 17:02 | DIAGNOSTIC IMAGING REPORT ---
THORACIC SPINE SINGLE VIEW CLINICAL HISTORY: THORACIC BACK PAIN COMPARISON STUDY: No previous studies for comparison. FINDINGS: AP view of the thoracic spine is provided for interpretation. The patient refused completion of the examination. The paraspinal line is not significantly displaced. There is a scoliosis. Bones are osteopenic. On the chest x-ray performed the same day there is a midthoracic compression fracture. IMPRESSION: 1. Technically limited study as the patient refused completion of the examination 2. T7 compression fracture, best visualized on the lateral view of the chest performed the same day Electronically signed by: Ho Pimentel M.D. 01/28/2018 5:01 PM Dictated Date/Time: 01/28/2018 4:59 PM
--- NOTE | 2018-01-28 17:04 | DIAGNOSTIC IMAGING REPORT ---
CHEST 2 VIEWS ROUTINE CLINICAL HISTORY: Chest pain. Metastatic breast cancer. COMPARISON STUDY: Chest radiograph October 28, 2016 and PET/CT July 15, 2017. FINDINGS: A small right pleural effusion is noted. Hazy right lower lung opacity is noted. Heart is moderately enlarged. There is no evidence for pulmonary edema. Right apical opacity has increased. There is no pneumothorax or left pleural effusion. IMPRESSION: 1. Small right pleural effusion versus pleural thickening which may be related to prior pleurodesis. However, pleural metastatic disease could appear similar. 2. Hazy right lower lung opacity. Round atelectasis is favored given findings on PET/CT of July 15, 2017. 3. Moderate cardiomegaly without evidence for pulmonary edema. Electronically signed by: Flavio Yan M.D. 01/28/2018 5:03 PM Dictated Date/Time: 01/28/2018 4:57 PM
--- NOTE | 2018-01-28 17:17 | EMERGENCY ROOM VISIT NOTE ---
History First contact with patient: 15:46 Chief Complaint: CHEST PAIN Stated Complaint: CHEST AND BACK PAIN Nursing Triage Summary: patient complains of chest pain and neck pain starting today. History of Present Illness The patient is a 77 year old female who presents to the Emergency Room with complaints of left-sided neck pain this morning that radiated down into her chest. She does not know how long it lasted. She does not have it now. The patient states that she just came to the emergency room to see "if her heart is okay, and if her back is collapsed and we need to do it quickly". The patient denies any diaphoresis, arm pain, shortness of breath. She does admit that she has some pain with inspiration in the left upper chest and into her neck. 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 She states she had a bone graft in her spine. She is concerned that it is collapsing. The patient also is currently taking oral chemo therapy for breast cancer. She is followed by Dr. Davis oncology as well as Dr. Davis as her family doctor. The patient currently has no complaints. The patient did not fall. The patient also states that she is getting "shots for her bones ". Review of Systems 10 system review was performed and was negative unless stated otherwise history of present illness. Past Medical/Surgical History Medical Problems: (1) Anemia due to multiple mechanisms (2) Anxiety (3) Atrial fibrillation (4) Bone metastasis (5) Brain mass (6) Breast cancer (7) Gram-negative bacteremia (8) Gram-negative bacteremia (9) History of DVT (deep vein thrombosis) (10) HTN (hypertension) (11) Iron deficiency anemia (12) Liver metastasis (13) Malignant pleural effusion (14) Secondary malignant neoplasm of bone (15) Stage IV carcinoma of breast, ER+ (16) Tachycardia Surgical Problems: (1) H/O shoulder replacement (2) S/P breast lumpectomy Family History Aneurysm FH: cancer Hypertension Social History Smoking Status: Former Smoker Alcohol Use: occasionally Drug Use: none Marital Status: single, in relationship Housing Status: lives with significant other Current/Historical Medications Scheduled Alpha-Lipoic Acid (Thioctic Ac (Alpha-Lipoic Acid), 100 MG PO HS Aspirin (Aspirin Ec), 3 TABS PO BID Bupropion (Wellbutrin Sr), 150 MG PO BID Calcium W/ Magnesium (Calcium & Magnesium), 1 TAB PO DAILY Capecitabine (Xeloda), 500 MG PO Q12H Cholecalciferol (Vitamin D), 6,000 UNITS PO DAILY Coenzyme Q10 (Ubidecarenone) (Coq-10), 50-100 MG PO HS Digestive Enzymes (Digestive Enzymes), 1 TAB PO DAILY Hjxrcyzijor-Bsslbajorsu-Jhc C- (Glucosamine Chondroitin), 2 CAP PO HS Metoprolol Tartrate (Lopressor) (Lopressor), 25 MG PO BID Aiken 3 Fatty Acids-Aiken 6 Fa (Aiken 3-6-9 Complex), 1,600 MG PO DAILY Probiotic Product (Probiotic), 1 TAB PO DAILY Selenium (Selenium), 100 MCG PO HS Vitamin E (E-1000), 1,000 UNITS PO HS [Bee Pollen], 1 TBS PO DAILY Scheduled PRN Hydrocodone/Acetaminophen 5MG/325MG (Kincaid 5MG/325MG), 1 TABLET PO Q8 PRN for Pain Lorazepam (Ativan), 0.5 MG PO HS PRN for Anxiety Ondansetron Hcl (Zofran), 8 MG PO TID PRN for Nausea Prochlorperazine Maleate (Compazine), 10 MG PO Q6H PRN for Nausea Physical Exam Vital Signs Date Time Temp Pulse Resp B/P (MAP) Pulse Ox O2 Delivery O2 Flow Rate FiO2 01/28/18 15:41 37.1 123 17 125/85 97 Room Air Physical Exam GENERAL: 77-year-old white female appears in no acute distress. MENTAL Status: Alert and oriented 3. She is very anxious. EYES: PERRLA. EOMs intact. NECK: Supple, no lymphadenopathy noted. No carotid bruits noted. LUNGS: Clear auscultation without wheezes rales or rhonchi. CARDIAC: Tachycardia with a rate of 123 and normal rhythm without murmur.. Pulses is full and equal throughout. ABDOMEN: Positive bowel sounds all 4 quadrants. Soft, nontender to palpation without organomegaly or masses. NEURO: Grossly intact LOWER EXTREMITIES: No cyanosis or edema noted. Bilateral calves are tender to palpation secondary to varicose veins. No palpable cords noted Medical Decision & Procedures ER Provider Diagnostic Interpretation: CHEST 2 VIEWS ROUTINE CLINICAL HISTORY: Chest pain. Metastatic breast cancer. COMPARISON STUDY: Chest radiograph October 28, 2016 and PET/CT July 15, 2017. FINDINGS: A small right pleural effusion is noted. Hazy right lower lung opacity is noted. Heart is moderately enlarged. There is no evidence for pulmonary edema. Right apical opacity has increased. There is no pneumothorax or left pleural effusion. IMPRESSION: 1. Small right pleural effusion versus pleural thickening which may be related to prior pleurodesis. However, pleural metastatic disease could appear similar. 2. Hazy right lower lung opacity. Round atelectasis is favored given findings on PET/CT of July 15, 2017. 3. Moderate cardiomegaly without evidence for pulmonary edema. Electronically signed by: Flavio Yan M.D. 01/28/2018 5:03 PM THORACIC SPINE SINGLE VIEW CLINICAL HISTORY: THORACIC BACK PAIN COMPARISON STUDY: No previous studies for comparison. FINDINGS: AP view of the thoracic spine is provided for interpretation. The patient refused completion of the examination. The paraspinal line is not significantly displaced. There is a scoliosis. Bones are osteopenic. On the chest x-ray performed the same day there is a midthoracic compression fracture. IMPRESSION: 1. Technically limited study as the patient refused completion of the examination 2. T7 compression fracture, best visualized on the lateral view of the chest performed the same day Electronically signed by: Ho Pimentel M.D. 01/28/2018 5:01 PM Laboratory Results 01/28/18 16:17 Red Blood Count 3.27, Mean Corpuscular Volume 97.6, Mean Corpuscular Hemoglobin 31.2, Mean Corpuscular Hemoglobin Concent 32.0, Mean Platelet Volume 10.1, Neutrophils (%) (Auto) 71.5, Lymphocytes (%) (Auto) 11.8, Monocytes (%) (Auto) 15.6, Eosinophils (%) (Auto) 0.7, Basophils (%) (Auto) 0.2, Neutrophils # (Auto ) 8.28, Lymphocytes # (Auto) 1.36, Monocytes # (Auto) 1.80, Eosinophils # (Auto ) 0.08, Basophils # (Auto) 0.02 Test 01/28/18 16:17 01/28/18 16:25 White Blood Count 11.56 K/uL (4.8-10.8) Red Blood Count 3.27 M/uL (4.2-5.4) Hemoglobin 10.2 g/dL (12.0-16.0) Hematocrit 31.9 % (37-47) Mean Corpuscular Volume 97.6 fL (80-100) Mean Corpuscular Hemoglobin 31.2 pg (25-34) Mean Corpuscular Hemoglobin Concent 32.0 g/dl (32-36) Platelet Count 306 K/uL (130-400) Mean Platelet Volume 10.1 fL (7.4-10.4) Neutrophils (%) (Auto) 71.5 % Lymphocytes (%) (Auto) 11.8 % Monocytes (%) (Auto) 15.6 % Eosinophils (%) (Auto) 0.7 % Basophils (%) (Auto) 0.2 % Neutrophils # (Auto) 8.28 K/uL (1.4-6.5) Lymphocytes # (Auto) 1.36 K/uL (1.2-3.4) Monocytes # (Auto) 1.80 K/uL (0.11-0.59) Eosinophils # (Auto) 0.08 K/uL (0-0.5) Basophils # (Auto) 0.02 K/uL (0-0.2) RDW Standard Deviation 56.8 fL (36.4-46.3) RDW Coefficient of Variation 16.0 % (11.5-14.5) Immature Granulocyte % (Auto) 0.2 % Immature Granulocyte # (Auto) 0.02 K/uL (0.00-0.02) Prothrombin Time 11.1 SECONDS (9.0-12.0) Prothromb Time International Ratio 1.1 (0.9-1.1) Activated Partial Thromboplast Time 34.4 SECONDS (21.0-31.0) Partial Thromboplastin Ratio 1.3 Total Bilirubin 0.7 mg/dl (0.2-1) Direct Bilirubin 0.2 mg/dl (0-0.2) Aspartate Amino Transf (AST/SGOT) 19 U/L (15-37) Alanine Aminotransferase (ALT/SGPT) 18 U/L (12-78) Alkaline Phosphatase 91 U/L (45-117) Total Creatine Kinase 56 U/L (26-192) Creatine Kinase MB < 1.0 ng/ml (0.5-3.6) Creatine Kinase MB Ratio (0-3.0) Total Protein 7.8 gm/dl (6.4-8.2) Albumin 3.3 gm/dl (3.4-5.0) Lipase 75 U/L (73-393) Bedside Troponin I < 0.030 ng/ml (0-0.045) ED Course Patient was evaluated. Patient's EMR medication list were reviewed. The patient does have a history of breast cancer which has metastasized to the bone and to the lungs. She had a PET scan done in July 2017 which did reveal some improvement of her metastases. IV access was obtained. The patient was placed on a monitor. EKG was ordered interpreted as above with evidence of tachycardia as compared to prior EKG of 08/12/2013. No acute ST changes noted. CBC and differential, renal profile, coags, CK-MB, [id number] troponin was ordered. Chest x-ray was ordered. X-ray of the thoracic spine was ordered and interpreted by the radiologist as above. The patient did not want any medications. When the patient was over for x-ray she decided that she had had enough and wanted to go home. The x-ray tech wanted her to lay on her left side which gave her pain therefore she decided that she wanted to leave as soon as possible. The patient came back to the emergency room and demanded that her IV be removed and she was going to get dressed and go home. The patient signed out AMA before any of her staying was resulted. The patient was in informed of the risks involved and still wanted to sign out immediately. The patient's labs are later rerouted reviewed and revealed anemia but this is chronic. Her other labs were unremarkable. Her troponin was less than 0.03. Her chest x- ray showed a T7 compression fracture. It was compared to prior and showed persistent probable metastasis in the lung. Medical Decision Differential diagnosis include acute VT, compression fracture, metastatic bone pain, pleural effusion, muscular strain [place] Drug Monitoring Program Search Results: patient reviewed within database Medication Reconcilliation Current Medication List: was personally reviewed by me Impression Primary Impression: Tachycardia Additional Impressions: Chest wall pain Anemia Thoracic compression fracture Departure Information Dispostion Against Medical Advice Condition GOOD Referrals Nathalie Davis M.D. (PCP) Patient Instructions [facility] Problem Qualifiers
== END 2018-01-28 16:53 | disposition left against medical advice (07) ==
LOC: C.EDB 15:40 → C.EDC 16:53
DX: R07.89 Other chest pain (principal); R00.0 Tachycardia, unspecified; M48.54XA Collapsed vertebra, not elsewhere classified, thoracic region, initial encounter for fracture; D64.9 Anemia, unspecified; C50.919 Malignant neoplasm of unspecified site of unspecified female breast; C78.00 Secondary malignant neoplasm of unspecified lung; C79.51 Secondary malignant neoplasm of bone; C78.7 Secondary malignant neoplasm of liver and intrahepatic bile duct; I48.91 Unspecified atrial fibrillation; Z79.82 Long term (current) use of aspirin; Z87.891 Personal history of nicotine dependence